=== PATIENT | female | born 1940 | race Caucasian/White ===

== ENCOUNTER → 2023-10-19 14:36 | Outpatient (REF) | payer OTHER, SELFPAY | LOC: RAD 14:36 | PROVIDERS: ATTENDING PHYSICIAN Internal Medicine Cardiovascular Disease; FAMILY PHYSICIAN Family Medicine | DX: I70.209 Unspecified atherosclerosis of native arteries of extremities, unspecified extremity (principal) | CPT/HCPCS: 93922; 93925 ==

== ENCOUNTER → 2024-05-19 13:40 | Outpatient (REF) | payer OTHER, SELFPAY | LOC: RAD 13:40 | PROVIDERS: ATTENDING PHYSICIAN Registered Nurse | DX: I73.9 Peripheral vascular disease, unspecified (principal) | CPT/HCPCS: 93922; 93925 ==

== ENCOUNTER 2024-11-09 17:00 | Inpatient (IN) | payer OTHER, SELFPAY ==
[2024-11-09] VITALS (14 sets, daily range): BP systolic 135–227; BP diastolic 44–96; BMI 22.3
[2024-11-09 11:36] LABS: % Basophils 0.5 % (0-2); % Eosinophils 5.1 % (0-6); % Immature Granulocytes 0.2 % (0-0.5); % Lymphocytes 8.1 % (20.5-51.1); % Neutrophils 79.1 % (42.2-75.2); Absolute Eosinophils 0.3 10^3/uL (0-0.7); Absolute Lymphocytes 0.5 10^3/uL (1.2-3.4); Absolute Monocytes 0.4 10^3/uL (0.1-0.6); Absolute Neutrophils 4.8 10^3/uL (1.4-6.5); Hematocrit 34.1 % (37.0-47.0); Hemoglobin 11.6 g/dL (12.0-16.0); Mean Corpuscular Hgb 32.5 pg (27.0-31.0); Mean Corpuscular Volume 95.5 fL (81.0-99.0); Mean Platelet Volume 9.6 fL (7.4-10.4); Nucleated Red Blood Cells % 0 %; Platelet Count 187 10^3/uL (130-400); Red Blood Cell Count 3.57 10^6/uL (4.20-5.40)
[2024-11-09 11:58] LABS: ALT (SGPT) 197 U/L (0-35); AST (SGOT) 270 U/L (14-36); Albumin 3.9 g/dl (3.5-5.0); Alkaline Phosphatase 193 U/L (38-126); Blood Urea Nitrogen 21 mg/dl (7-17); Calcium 9.6 mg/dl (8.4-10.2); Carbon Dioxide 25 mmol/L (22-30); Chloride 111 mmol/L (98-107); Glucose 120 mg/dl (70-99); Potassium 4.5 mmol/L (3.5-5.1); Sodium 142 mmol/L (135-145); Total Bilirubin 1.6 mg/dl (0.2-1.3); Total Protein 6.3 g/dl (6.3-8.2); eGFR 55.21
[2024-11-09 12:09] LABS: Lipase > 4000 U/L (23-300); Troponin I < 0.012 ng/ml
--- NOTE | 2024-11-09 12:43 | ED.GENMED ---
History of Present Illness
General
Chief Complaint: Back Pain
Source: patient and family (daughter at bedside)
Exam Limitations: none
Time Seen by Provider: 11/09/24 12:35
Nursing documentation reviewed up to this point in time: agreed with
History of Present Illness
History of Present Illness:
The patient is an 83-year-old female with history hypertension, hyperlipidemia, hypothyroid presenting to the emergency department with acute onset abdominal pain starting around 10 PM last night. She describes the pain as constant and localized
primarily to the upper right side, radiating towards the back. The pain began somewhat abruptly while the patient was lying in bed. Patient reports associated nausea although denies any vomiting. She denies any associated chest pain, shortness of
breath, diarrhea/constipation, or urinary symptoms. She denies any fevers or chills. No associated cough or recent illness. She denies any recent trauma or falls.
Patient denies any history of similar symptoms.
She states that prior to onset of pain she did have pizza and chicken tenders for dinner around 6 PM. She denies any alcohol use.
Patient has had past abdominal surgeries including and an appendectomy many years ago.
Review of Systems
Review of Systems
Allergies reviewed?: Yes
All Other Systems: ROS reviewed and negative except as documented in HPI and ROS
Phy Exam
Physical Exam
Physical Exam:
Vitals: Patient's vital signs are stable. Afebrile
General: Patient is well appearing, no acute distress. Nontoxic appearing
Skin: Warm and dry, no rashes or lesions
Head: Normocephalic, atraumatic
Eyes: Sclera nonicteric.
Throat: Protecting airway
Neck: Normal ROM
Cardiac: Regular rate and rhythm, no murmurs.
Pulm: Normal respiratory effort, no wheezes, rales, rhonchi heard on exam
.
Abdomen: Abdomen soft. Moderate tenderness in right upper quadrant with voluntary guarding. Positive Angeles sign. Mild tenderness in epigastric region.
Extremities: No evidence of cyanosis or edema. Palpable DP pulses bilaterally
Neuro: AAOx3. Grossly intact.
Psychiatric: Normal affect.
Course
Orders/Labs/Results
Orders:
Orders
11/09/24 11:20
ECG [Electrocardiogram (*1)] Urgent
Reason for Study: Abdominal Pain
EKG- Treatment ONCE
11/09/24 11:28
Complete Blood Count/With Diff Urgent
Comprehensive Metabolic Panel Urgent
Direct Bilirubin Urgent
Lipase Urgent
Troponin I Urgent
11/09/24 12:53
Add On- LAB Urgent
Tests Added?: direct bilirubin
HYDROmorphone [Dilaudid] 0.5 mg IV NOW STA
Ondansetron Injectable [Zofran] 4 mg IV NOW STA
US Abdomen Complete/Upper Urgent
Comment:
Reason For Exam: RUQ pain, elevated lipase
11/09/24 12:55
Lactated Ringers [Lr] 1,000 ml IV BOLUS
11/09/24 Dinner
NPO
Allow oral meds: Yes
Allow clear liquids: Sips of Clears
11/09/24 15:26
HYDROmorphone [Dilaudid] 0.5 mg IV NOW STA
11/09/24 15:40
GASTROINTESTINAL CONSULT Routine
Consulting Provider: Bernadette Beck
Was physician already notified: Yes
11/09/24 15:44
SURGICAL CONSULT Routine
Consulting Provider: Pravin Jones
Was physician already notified: Yes
11/09/24 15:45
HydrALAZINE [Apresoline] 10 mg IV Q4HPRN PRN
11/09/24 15:59
Admit/Transfer Patient As Directed
Co-Sign Provider:
Level of Care: Inpatient admission
Assign to:: Medical/Surgical
Physician / Group: Emily/hospitalist
Diagnosis: GS pancreatitis
Reason for Hospitalization: GS pancreatitis
Expected length of stay greater than two midnights?: Yes
ELOS- Estimated Length of Stay in days: 3
I certify the patient meets the requirements for IP care: Yes
PRN Pain Medication Management As Directed
May give lesser potent ordered pain med per pt: Yes
preference::
Protocol:: Medication orders for pain may be administered in a
manner that supports deferring to patient preference
when the pt is:
- Requesting an ordered lesser potent pain medication.
Least to most potent pain medications are defined
as: acetaminophen < NSAID < tramadol < opioids
(morphine, oxycodone, hydromorphone).
- Requesting a lesser dose of the same medication IF
ORDERED.
- Requesting a less intrusive route of administration
if both routes are prescribed by the provider (PO <
IV).
11/09/24 16:00
Code Status As Directed
Resuscitation Status: Full Code
11/09/24 17:00
Lactated Ringers [Lr] 1,000 ml IV 100 mls/hr
11/09/24 17:38
Bisacodyl [Dulcolax] 10 mg RECTAL [id number] PRN
Docusate W/Senna [Senokot-S] 1 tablet PO BIDPRN PRN
Morphine Sulfate 2 mg IV Q4HPRN PRN
Ondansetron Injectable [Zofran] 4 mg IV Q6HPRN PRN
Polyethylene Glycol Powder [Miralax] 17 grams PO DAILYPRN PRN
11/09/24 17:38
Activity As Directed
Activity Level: As Tolerated
Vital Signs As Directed
Frequency: Per unit guidelines
DX Deep Vein Thrombosis Video Routine
11/09/24 18:00
Enoxaparin Sodium [Lovenox] 40 mg SC QPM
Labetalol [Trandate] 300 mg PO BID
11/10/24 06:00
Complete Blood Count/No Diff IN AM
Comprehensive Metabolic Panel IN AM
Lipase IN AM
Magnesium IN AM
Levothyroxine [Synthroid] 75 mcg PO DAILY @ 0600
11/10/24 08:00
Valsartan [Diovan] 320 mg PO DAILY
11/11/24 06:00
Complete Blood Count/No Diff IN AM
Comprehensive Metabolic Panel IN AM
Lipase IN AM
Abnormal Lab Results
11/09/24
11:28
RBC 3.57 L 10^6/uL
(4.20-5.40)
Hgb 11.6 L g/dL
(12.0-16.0)
Hct 34.1 L %
(37.0-47.0)
MCH 32.5 H pg
(27.0-31.0)
Absolute Lymphs (auto) 0.5 L 10^3/uL
(1.2-3.4)
Neutrophils % 79.1 H %
(42.2-75.2)
Lymphocytes % 8.1 L %
(20.5-51.1)
Chloride 111 H mmol/L
(98-107)
BUN 21 H mg/dl
(7-17)
Glucose 120 H mg/dl
(70-99)
Total Bilirubin 1.6 H mg/dl
(0.2-1.3)
Direct Bilirubin 0.7 H mg/dl
(0.0-0.4)
AST 270 H U/L
(14-36)
ALT 197 H U/L
(0-35)
Alkaline Phosphatase 193 H U/L
(38-126)
Lipase > 4000 H* U/L
(23-300)
11/09/24 11:28
11/09/24 11:28
Vital Signs
Initial and Last Documented VS:
Initial Vital Signs
Pulse Resp Pulse Ox
52 16 100
11/09/24 11:21 11/09/24 11:21 11/09/24 11:21
Last Documented Vital Signs
Temp Pulse Resp BP Pulse Ox
98.8 F 72 18 165/50 96
11/09/24 23:06 11/09/24 23:06 11/09/24 23:06 11/09/24 23:06 11/09/24 23:06
MDM/Problems Addressed
Differential Diagnosis Includes:
Not limited to: Acute pancreatitis, gallstone pancreatitis, biliary colic, acute cholecystitis, choledocholithiasis, cholangitis, GERD, ACS, etc.
MDM/Problems Addressed:
83-year-old female presented to the emergency department with one-day of upper abdominal pain associated with nausea. Vitals and physical exam as above. Patient hypertensive on my initial evaluation which I suspect to somewhat related to discomfort.
The physical examination confirmed tenderness in RUQ/ epigastric region. No peritoneal signs.. Prior to evaluation, lab tests included a CBC with no significant abnormalities, chemistry test showed elevated bilirubin, transaminitis, and a lipase
level > 4,000. Given laboratory abnormalities in conjunction with hx / exam - concern for gallstone pancreatitis. Will check abdominal US, give IV LF, and treat pain. Patient will require admission to hospital for further evaluation.
Update: Abdominal US reveals cholelithiasis without other significant abnormalities. Overall impression is gallstone pancreatitis, given the elevated bilirubin, transaminitis, elevated lipase, and ultrasound findings of gallstones. The patient will
be admitted for fluid resuscitation and pain control, with consideration for a possible ERCP, cholecystectomy if needed. Patient accepted to hospitalist service in stable condition. GI aware.
Chronic conditions affecting care:
N/A
Acute Exacerbation and/or Progression of Chronic Illness:
N/A
*Radiology
Radiology exam reviewed: radiology read reviewed
*Pulse Oximetry
Patient hypoxic: no (100% on room air)
*EKG
Interpreted by ED Provider?: Yes
EKG Intrepretation Date: 11/09/24
Interpretation: abnormal
Comparison EKG: no changes
Heart Rate: 51
Rate: bradycardiac
Rhythm: sinus
Sells: normal axis
Interval: normal QT interval
QRS Pattern: normal QRS
Ischemia: no ischemia
*Refrigeration Engine Operator Interpretation
Rate: Refrigeration Engine Operator- N/A
*Critical Care Note
Total Time (30-74mins, 75-104mins- exclusive of procedures): Not Applicable
Data Reviewed
Review of Other/Old Records Reveals: Testing (Cardiac echo from 01/09/2023-EF of 60 to 65%)
Patient Management
Discussion with other providers: Hospitalist and [employer] (Case discussed with GI)
Escalation/DeEscalation of care consider admission/obs:
Admit indicated
ED Attending Note
-
Portions of this chart may have been created with voice recognition software.� Occasional wrong word or��sound alike� substitutions may have occurred due to the inherent limitations of voice recognition software.
Discharge Plan
Departure
Patient Disposition: Admit
Date of Disposition: 11/09/24
Time of Disposition: 15:34
Presentation/result/management discussed w/ accepting MD/DO: Hospitalist
Discharge Problem:
Gallstone pancreatitis
Interventions
Interventions:
*Risk Screen - Suicide Last Done: 11/09/24 18:38
*General Assessment Last Done: 11/09/24 11:24
*Neglect/Abuse Screening Last Done: 11/09/24 11:24
*ED- Fall Risk Assessment Last Done: 11/09/24 12:44
*ED COVID-19 Vaccine History Last Done: 11/09/24 12:44
*Nursing Disposition Last Done: 11/09/24 17:40
ED-Musculoskeletal Assessment Last Done: 11/09/24 12:44
Discharge Date and Time
Discharge Date/Time: 11/09/24 17:45
[2024-11-09] MEDS: DILAUDID 0.5 MG IV ×2 (13:09→15:35)
[2024-11-09] MEDS: ZOFRAN 4 MG IV (13:10)
[2024-11-09] MEDS: LR 1000 IV ×2 (13:10→18:21)
[2024-11-09 13:30] LABS: Direct Bilirubin 0.7 mg/dl (0.0-0.4)
--- NOTE | 2024-11-09 15:39 | HPS.HSE ---
Family Physician
-
Family Physician: Demond Betancourt
Chief Complaint
-
RUQ pain
History of Present Illness
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 The pain radiated to her back.
Patient also c/o nausea without vomiting.
She denied to other symptoms including fevers/chills etc.
Medical History
Past Medical History
Past Medical History: Reports Other
Additional Past Medical History:
hypertension,
hyperlipidemia,
hypothyroidism
Past Surgical History: Reports Appendectomy, and Other (BL breast cyst removed )
Social History
Tobacco: Non-smoker
Alcohol: None
Living: With Family
Family History
Family History: Not pertinent
Allergies / Home Medications
Allergies reflects when Allergies were last updated in [facility].
Home Medications with original date entered in [facility]
Allergy/Medication List:
Medications on admission are unable to be verified or confirmed at this time.
Review of Systems
-
Abdomen/GI: Reports See HPI, Abdominal Pain and Nausea; Denies Vomiting
Physical Exam
Vital Signs
Vital Signs
Temp Pulse Resp BP Pulse Ox
36.4 C 48 14 217/58 97
11/09/24 11:22 11/09/24 15:20 11/09/24 15:20 11/09/24 15:20 11/09/24 15:20
Physical Exam
General: Well Developed, Well Nourished, No Apparent Distress, Comfortable and Conversant
HEENT: NormoCephalic, Moist mucous membranes and Atraumatic
Respiratory: Clear and Non Labored Respirations; No Accessory Resp Muscle Use
Cardiac: S1/S2 and Regular Rhythm; No Murmur or Rub
GI: Soft, Non Distended, Normal Bowel Sounds and Tender (RUQ, mild pain); No Organomegaly
Rectal: Deferred by Provider
Musculoskeletal: No Clubbing, No Cyanosis and No Edema
Skin: No Rash
Neuro: Awake and Alert
Psych: Calm and Intact Judgment/Insight
Laboratory Results
-
11/09/24 11:28
11/09/24 11:
Laboratory Results
Total Bilirubin 1.6 mg/dl (0.2-1.3) H 11/09/24 11:
AST 270 U/L (14-36) H 11/09/24:
ALT 197 U/L (0-35) H 11/09/24 11:
Alkaline Phosphatase 193 U/L (38-126) H 11/09/24 11:
Troponin I < 0.012 ng/ml 11/09/24 11:
Lipase > 4000 U/L (23-300) H* 11/09/24 11:28
Data Reviewed
-
Ultrasound: Report Reviewed by me
Lab Data: Labs Reviewed by me
Impression/Plan
-
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 The pain radiated to her back.
Patient also c/o nausea without vomiting.
She denied to other symptoms including fevers/chills etc.
Abd US:
Gallbladder stones without wall thickening. Cannot entirely exclude some pericholecystic fluid. Negative sonographic Angeles's sign. No findings to suggest biliary tract dilatation.
No focal abnormality of the visualized head/body of pancreas.
Small simple right renal cyst.
A/P:
# Right upper quadrant abdominal pain due to gallstone pancreatitis
# Transaminitis due to above
lipase > 4000 on admission
Abdominal ultrasound as above
N.p.o. with IV fluid RL
Pain control with
GI consult
General Surgery consult
# hypertension urgency
BP 200/50 on admission
Continue COMMUNITY ENGAGEMENT SPECIALIST labetalol
IV hydralazine as needed
# hyperlipidemia
Hold statin with current transaminitis
# hypothyroidism
continue COMMUNITY ENGAGEMENT SPECIALIST Synthroid
DVT ppx: Lovenox SQ
FC
[2024-11-09] MEDS: APRESOLINE 10 MG IV (16:04)
--- NOTE | 2024-11-09 16:54 | CON.GS ---
Consultation
-
Date/Time Consultation Performed: 11/09/24 1645
Performing Provider: Stephen Chapin
Medical History
-
Chief Complaint: epigastric pain
History of Present Illness:
Ms Gabrer is an 83 yo female with a h/o , appendectomy and HTN who presented through the ED with epigastric pain into her back that began around 10pm last night. She notes that in August, she strained her lower back and has been experiencing
low back pain since that time with occasional nausea. Last night, the pain was more toward the mid back but primarily in the epigastric area across the top of her abdomen with persistent nausea. She presents to the ED today as her symptoms have
worsened and not improved. She has not eaten since yesterday d/t nausea and poor appetite. She notes her urine has been a little darker but denies acholic stools or jaundice. She has not experienced pain like this in the past. On exam, she is tender
primarily to the epigastrium with milder tenderness to the bilateral upper abdomen. She is feeling a little more comfortable since receiving medicaiton in the ED.
Past Medical History
Past Medical History: HTN, Hypercholesterolemia and Hypothyroidism
Past Surgical History: Appendectomy (open), and Other (BL breast cyst removal (benign), Last colonoscopy 2013 with polypectomy)
Social History
Tobacco: Former Smoker
Alcohol: Occasional (5x a year)
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
Family History
Family History: Other (gallbladder dz)
Allergies / Home Medications
Allergy/AdvReac Type Severity Reaction Status Date / Time
No Known Allergies Allergy Verified 11/09/24 11:22
�Medication �Instructions �Recorded �Confirmed �Type
atorvastatin 10 mg tablet 10 mg PO HS 09/18/21 11/09/24 History
labetalol 200 mg tablet 300 mg PO BID 09/18/21 11/09/24 History
levothyroxine 75 mcg capsule 75 mcg PO DAILY 09/18/21 11/09/24 History
valsartan 320 mg tablet 320 mg PO HS 09/18/21 11/09/24 History
cholecalciferol (vitamin D3) 25 25 mcg PO HS 11/09/24 11/09/24 History
mcg (1,000 unit) tablet
famotidine 20 mg tablet (Pepcid) 20 mg PO DAILYPRN PRN gerd 11/09/24 11/09/24 History
ibuprofen 200 mg tablet 600 mg PO DAILYPRN PRN mild pain 11/09/24 11/09/24 History
therapeutic multivitamin 1 tab PO HS 11/09/24 11/09/24 History
vitamin B complex 1 tab PO HS 11/09/24 11/09/24 History
Review of Systems
-
History Source: Patient
All other systems: Negative unless noted
A 10 point review of systems was completed, and was negative except as per HPI.
Physical Exam
Vital Signs
Temp Pulse Resp BP Pulse Ox
97.5 F 52 18 208/55 97
11/09/24 11:22 11/09/24 16:00 11/09/24 16:20 11/09/24 16:20 11/09/24 16:20
11/08/24 11/09/24 11/10/24
06:59 06:59 06:59
Actual Weight 64.9 kg
Lab Results
11/09/24 11:28
11/09/24 11:28
WBC 6.0 10^3/uL (4.8-10.8) 11/09/24 11:28
Hgb 11.6 g/dL (12.0-16.0) L 11/09/24 11:28
Hct 34.1 % (37.0-47.0) L 11/09/24 11:28
Plt Count 187 10^3/uL (130-400) 11/09/24 11:28
Abs Immat Gran (auto) 0.0 10^3/uL (0-0.05) 11/09/24 11:28
Neutrophils % 79.1 % (42.2-75.2) H 11/09/24 11:28
Physical Exam
General: Well Developed and Well Nourished
HEENT: Moist Mucous Membranes
Respiratory: Non Labored Respirations
GI: Soft, Non Distended and Tender (Upper abdomen, most severe at the epigastrium)
Skin: Warm and Dry
Neuro: Awake, Alert and AO x 3
Psych: Calm
Data Reviewed
-
Ultrasound: Image Personally Visualized and interpreted, Report Reviewed by me, Discussed with Physician and Discussed with Patient
Labs: Labs Reviewed by me, Discussed with Physician and Discussed with Patient
Old Records: Reviewed
Assessment / Plan
-
83 yo female with a h/o , appendectomy and HTN who presented through the ED with suspected gallstone mediated pancreatitis. She c/o epigastric pain into her back that began around 10pm last night. Lipase >4k with mildly elevated bilirubin
and transaminases. No leukocytosis. Pain and tenderness on exam to the upper abdomen. US imaging with gallstones but without wall thickening or significant pericholecystic fluid. Afebrile. Hypertensive emergency on presentation with better BP
currently of 152/100.
Discussed the role of surgery for laparoscopic cholecystectomy in prevention of future episodes. Surgery will not correct this current episode and would ideally be preformed once pancreatitis improved/resolved. Will follow for tentative lap homar
later this admission.
Management of acute pancreatitis as per primary team/gastroenterology
[2024-11-09] MEDS: TRANDATE 300 MG PO (17:32)
[2024-11-09] MEDS: LOVENOX 40 MG SC (18:21)
--- NOTE | 2024-11-09 18:50 | PTCARENOTE ---
Pt arrived to 413-1 at 1750 from the ED. Pt AAOx3, telemetry admission, Sinus Rhythm/Sinus Bradycardia on tele, HR 50s-60s. Rating upper abdominal pain as 3/10, acceptable pain at this time for patient. BP 207/66 on admit to floor. Asymptomatic,
ongoing problem for pt, Dr. Diaz aware. Advised pt to ring call meraz for assist to the bathroom due to elevated BP and pain- pt verbalized understanding.
Rechecked BP at [address] Diaz had asked for a recheck a hour after Labetalol was administered. BP (manually) 210/58, HR 62. Pt denying headache or dizziness but having increased abdominal pain. Made Dr. Diaz aware of BP and administered PRN
Morphine 2mg at 1850, will continue to monitor closely.
[2024-11-09] MEDS: MORPHINE SULFATE 2 MG IV (18:53)
[2024-11-10] VITALS (8 sets, daily range): BP systolic 126–188; BP diastolic 45–71; BMI 22.3
[2024-11-10] MEDS: MORPHINE SULFATE 2 MG IV (00:27)
[2024-11-10] MEDS: ZOFRAN 4 MG IV ×2 (00:29→19:44)
[2024-11-10] MEDS: APRESOLINE 10 MG IV (03:19)
[2024-11-10] MEDS: COMPAZINE 5 MG IV (04:50)
[2024-11-10] MEDS: LR 1000 IV ×2 (05:33→17:05)
[2024-11-10] MEDS: TORADOL 15 MG IV (05:36)
[2024-11-10] MEDS: SYNTHROID 75 MCG PO (05:37)
--- NOTE | 2024-11-10 06:30 | PTCARENOTE ---
Patient complaining of 'pressure' and 'swishing noise' in head that is worse when laying on her side. Patient also continues with nausea and dry heaving at times. 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 Patient reports relief after
medications. Plan of care ongoing.
--- NOTE | 2024-11-10 06:53 | CON.GI ---
Addendum entered and electronically signed by Bernadette Beck MD 11/10/24 20:07:
I saw and examined the patient.
The BALE STACKER or PA's note was reviewed and I agree with the note.
Comment: 83-year-old female with history of hypertension, high cholesterol, hypothyroidism presenting with complaints of back pain and epigastric pain in the last 3 weeks, also noted to have lost about 10 pounds and pain persistent and worsening and
came to the emergency room. In the ER, she was noted to have elevated bilirubin, 1.6 on admission and now 5.2 with elevated AST, ALT and alkaline phosphatase and lipase. Subsequent MRI showing double duct sign with 1.3 x 1.2 cm mass in the
pancreatic head and severe diffuse dilation of the intra and extrahepatic biliary tract.
- Pancreatitis caused by underlying pancreatic mass with double duct sign concerning for malignancy.
Patient will need EUS/ERCP for FNA of the pancreatic mass and possible biliary stent placement .
No fevers at this time or leukocytosis, but given there is significant dilation of the bile duct with a planned EUS/ERCP Sunday, will start Zosyn.
Discussed with advanced endoscopy fellow Dr. Noé Hope, plan is for abdominal and back procedure at [facility] Sunday.
Updated f patient and daughter.
Original Note:
Consultation
-
Date/Time Consultation Requested: 11/09/24 1540
Date/Time Consultation Performed: 11/10/24 0945
Requesting Provider: Alejandra Diaz MD
Performing Provider: GAYE Martin, Bernadette Beck MD
Reason for Consultation: pancreatitis, elevated LFT's
Medical History
Chief Complaint / HPI
Chief Complaint: abdominal pain
History of Present Illness:
PT is a 83yo with hx HTN, hypercholesterolemia, hypothyroidism, TA polyps, PAD, appe, , breast biopsy with onset of epigastric pain. Pt admits to recent back strain prior to onset. Labs on admission noted with bili 1.6 with rise to 5.2 ,
AST 270, ALT 197, alk phos 193 with lipase >4000. US abdomen with gallbladder stones without wall thickening. Neg angeles sign no biliary tract dilatation no focal abnormality in head/body of pancreas. small simple renal cyst. Pt has been seen by
surgical team recommend lap homar when able.
In review with patient she began with back pain lift heavy item about 6-7 weeks ago. She admits to to taking Tyelnol up to 1 gram daily long with Advil and some Aleve with several dose per daily for at least 1 week. She now presents with
continued epigastric/back pain with wrap about pain. She rates as 3/10 with worse pain 8/10. She also admits to some indigestion with 10 lbs wt loss. she denies fever, dysphagia, odynophagia, vomiting, diarrhea, constipation, change in urine or
stool color. Recent increased NSAID use with back pain. No AC use.
Past Medical History
Past Medical History: HTN, Hypercholesterolemia, Hypothyroidism and Other (PAD, TA polyps )
Past Surgical History: Appendectomy, and Other (breast biopsy )
Social History
Tobacco: Former Smoker
Alcohol: None
Drug: None
Living: With Family (daughter )
Employment: Employed
Family History
Family History: Other (mother with hx homar, no family hx pancreatic problems)
Allergies / Home Medications
Allergy/AdvReac Type Severity Reaction Status Date / Time
No Known Allergies Allergy Verified 11/09/24 11:22
�Medication �Instructions �Recorded
atorvastatin 10 mg tablet 10 mg PO HS 09/18/21
labetalol 200 mg tablet 300 mg PO BID 09/18/21
levothyroxine 75 mcg capsule 75 mcg PO DAILY 09/18/21
valsartan 320 mg tablet 320 mg PO HS 09/18/21
cholecalciferol (vitamin D3) 25 25 mcg PO HS 11/09/24
mcg (1,000 unit) tablet
famotidine 20 mg tablet (Pepcid) 20 mg PO DAILYPRN PRN gerd 11/09/24
ibuprofen 200 mg tablet 600 mg PO DAILYPRN PRN mild pain 11/09/24
therapeutic multivitamin 1 tab PO HS 11/09/24
vitamin B complex 1 tab PO HS 11/09/24
Review of Systems
-
History Source: Patient
Constitutional: Reports Weight Loss
EENT: Reports No Symptoms
Respiratory: Reports No Symptoms
Cardiac: Reports No Symptoms
Abdomen/GI: Reports Abdominal Pain
: Reports No Symptoms
Musculoskeletal: Reports No Symptoms
Skin: Reports No Symptoms
Neurological: Reports No Symptoms
Endocrine: Reports No Symptoms
Hematologic/Lymphatic: Reports No Symptoms
Vital Signs
Temp Pulse Resp BP Pulse Ox
98.7 F 68 18 171/56 96
11/10/24 03:21 11/10/24 06:33 11/10/24 03:21 11/10/24 06:33 11/10/24 03:21
Physical Exam
Exam
General: Well Developed, Well Nourished and No Apparent Distress
HEENT: Normocephalic and Other (jaundice )
Respiratory: Clear
Cardiac: Regular Rhythm
GI: Soft, Non Distended and Tender (epigastric pain )
Musculoskeletal: No Clubbing and No Cyanosis
Skin: Warm and Dry
Neuro: Awake, Alert and AO x 3
Psych: Calm
Results
WBC 6.0 10^3/uL (4.8-10.8) 11/09/24 11:28
Hgb 11.6 g/dL (12.0-16.0) L 11/09/24 11:28
Hct 34.1 % (37.0-47.0) L 11/09/24 11:28
MCV 95.5 fL (81.0-99.0) 11/09/24 11:28
Plt Count 187 10^3/uL (130-400) 11/09/24 11:28
Absolute Neuts (auto) 4.8 10^3/uL (1.4-6.5) 11/09/24 11:28
Sodium 142 mmol/L (135-145) 11/09/24 11:28
Potassium 4.5 mmol/L (3.5-5.1) 11/09/24 11:28
Chloride 111 mmol/L (98-107) H 11/09/24 11:28
Carbon Dioxide 25 mmol/L (22-30) 11/09/24 11:28
BUN 21 mg/dl (7-17) H 11/09/24 11:28
Creatinine 1.0 mg/dL (0.6-1.0) 11/09/24 11:
Calcium 9.6 mg/dl (8.4-10.2) 11/09/24 11:
Total Bilirubin 1.6 mg/dl (0.2-1.3) H 11/09/24 11:28
AST 270 U/L (14-36) H 11/09/24 11:28
ALT 197 U/L (0-35) H 11/09/24 11:28
Alkaline Phosphatase 193 U/L (38-126) H 11/09/24 11:28
Lipase > 4000 U/L (23-300) H* 11/09/24 11:28
Diagnostic Image Results:
11/09/24 US Abdomen Complete/Upper
Gallbladder stones without wall thickening. Cannot entirely exclude some pericholecystic fluid. Negative sonographic Angeles's sign. No findings to suggest biliary tract dilatation.
No focal abnormality of the visualized head/body of pancreas.
Small simple right renal cyst.
Prior GI Procedures:
EGD: none
Colonoscopy: 2014 salguti - repeat 2 years based on path - Non-thrombosed external hemorrhoids found on perianal
exam.
- One 1 mm polyp in the cecum. Resected and retrieved.
- One 2 mm polyp in the cecum. Resected and retrieved.
- One 2 mm polyp in the ascending colon. Resected and
retrieved.
- One 2 mm polyp in the ascending colon. Resected and
retrieved.
- One 3 mm polyp at the hepatic flexure. Resected and
retrieved.
- One 5 mm polyp in the rectum. Resected and retrieved.
Clip was placed.
- Diverticulosis in the sigmoid colon.
bx cecum benign other polyps adenomatous
Assessment / Plan
-
PT is a 83yo with hx HTN, hypercholesterolemia, hypothyroidism, PAD, TA polyps, appe, , breast biopsy with onset of epigastric pain. Pt admits to recent back strain prior to onset. Labs on admission noted with bili 1.6, AST 270, ALT 197,
alk phos 193 with lipase >4000. US abdomen with gallbladder stones without wall thickening. Neg angeles sign no biliary tract dilatation no focal abnormality in head/body of pancreas. small simple renal cyst. Pt has been seen by surgical team
recommend lap homar when able. Recent increased NSAID use with back pain. No AC use.
-epigastric pain with concern for pancreatitis
-elevated LFT's and lipase
-cholelithiasis
-recent back pain with increased NSAID use
other med problems:
-HTN
-hyperlipidemia
-hypothyroidism
-PAD
-prior appe
-
-TA polyps
PLAN:
etiology of elevated LFT's and lipase elevated related to CBD stone , pancreatic vs other
plan for MRI with MRCP -- hopefully to do this am
if + stone will need ERCP - timing to be determined pending MRI study
if proceeding consider EGD with recent increased NSAID use
cont NPO
s/p surgical eval awaiting work up for plan for homar
trend labs
pain control
-
-
Thank you for consultation and allowing me to participate in the patient's care. Please call the modeling and simulation analyst GI physician during the after hours with any questions or concerns.
[2024-11-10 07:26] LABS: Hematocrit 32.1 % (37.0-47.0); Mean Corp Hgb Conc. 34.3 g/dL (33.0-37.0); Mean Corpuscular Hgb 32.5 pg (27.0-31.0); Mean Platelet Volume 10.4 fL (7.4-10.4); Platelet Count 170 10^3/uL (130-400); Red Blood Cell Count 3.38 10^6/uL (4.20-5.40); Red Cell Dist. Width 13.2 % (11.5-14.5); White Blood Cell Count 9.7 10^3/uL (4.8-10.8)
[2024-11-10 08:01] LABS: ALT (SGPT) 150 U/L (0-35); AST (SGOT) 158 U/L (14-36); Albumin 3.7 g/dl (3.5-5.0); Alkaline Phosphatase 187 U/L (38-126); Blood Urea Nitrogen 20 mg/dl (7-17); Calcium 9.5 mg/dl (8.4-10.2); Carbon Dioxide 23 mmol/L (22-30); Chloride 108 mmol/L (98-107); Estimated Creatinine Clearance 44 ml/min; Glucose 93 mg/dl (70-99); Magnesium 1.8 mg/dl (1.6-2.3); Potassium 4.1 mmol/L (3.5-5.1); Sodium 140 mmol/L (135-145); Total Bilirubin 5.2 mg/dl (0.2-1.3); eGFR > 60.00
[2024-11-10 08:15] LABS: Lipase > 4000 U/L (23-300)
[2024-11-10] MEDS: DIOVAN 320 MG PO (08:41)
[2024-11-10] MEDS: TRANDATE 300 MG PO ×2 (08:41→19:44)
--- NOTE | 2024-11-10 09:48 | W.PN.HOSP.TC ---
Today's Communication/Plan
-
see A/P
Assessment / Plan
Assessment / Plan
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 The pain radiated to her back.
Patient also c/o nausea without vomiting.
She denied to other symptoms including fevers/chills etc.
Abd US:
Gallbladder stones without wall thickening. Cannot entirely exclude some pericholecystic fluid. Negative sonographic Angeles's sign. No findings to suggest biliary tract dilatation.
No focal abnormality of the visualized head/body of pancreas.
Small simple right renal cyst.
A/P:
# Right upper quadrant abdominal pain due to gallstone pancreatitis
# Transaminitis due to above
lipase > 4000, cont to trend
LFT improving, cont to monitor
Abdominal ultrasound as above
Check MRCP
N.p.o. with IV fluid RL
Pain control with IV Morphine PRN
GI consulted
General Surgery consulted
# hypertension urgency
BP 200/50 on admission
Continue TASSEL MAKER labetalol
IV hydralazine as needed
# hyperlipidemia
Hold statin with current transaminitis
# hypothyroidism
continue TASSEL MAKER Synthroid
DVT ppx: Lovenox SQ
FC
Anticipated Discharge: > 48 hours
Subjective/Interval History
-
Date of Service: November 10, 2024
Objective Data
-
Labs:
Laboratory Results
11/10/24
06:49
WBC 9.7
Hgb 11.0 L
Hct 32.1 L
Plt Count 170
Sodium 140
Potassium 4.1
Chloride 108 H
Carbon Dioxide 23
BUN 20 H
Creatinine 0.9
Glucose 93
Calcium 9.5
Total Bilirubin 5.2 H D
AST 158 H
ALT 150 H
Alkaline Phosphatase 187 H
Vital Signs:
Vital Signs
Temp Pulse Resp BP Pulse Ox
36.8 C 90 18 162/71 95
11/10/24 08:25 11/10/24 08:41 11/10/24 08:25 11/10/24 08:41 11/10/24 08:25
Review of Systems
-
History Source: Patient
Abdomen/GI: Reports Abdominal Pain (RUQ)
Physical Exam
-
General: Well Developed, Well Nourished, No Apparent Distress, Comfortable and Conversant; Negative Respiratory Distress
HEENT: Normocephalic, Atraumatic, Nose Appears Normal and Ears Appear Normal; Negative Oxygen
Respiratory: Clear to Auscultation and Non Labored Respirations; Negative Accessory Resp Muscle Use
Cardiac: Regular Rhythm and S1/S2
GI: Soft, Nondistended, Normal Bowel Sounds and Tender (mild, RUQ )
Skin: Warm and Dry
Neuro: Awake, Alert, Oriented and AO x 3
Psych: Calm and Intact Judgement/Insight
Data Reviewed
-
Labs: Labs Reviewed by me
--- NOTE | 2024-11-10 11:06 | CM ---
Patient seen bedside, initial assessment completed. Patient is a 83-year-old female with history hypertension, hyperlipidemia, hypothyroidism; p/w acute onset RUQ abdominal pain.
Patient resides w/ her daughter and daughter's fiance in a 2ST[facility], 2 steps to enter. Patient independent in all areas, no DME identified. Denies SNF/HC hx.
Address, point of contact and insurance verified
PCP: Demond Betancourt
Pharmacy: [facility]
Plan: Anticipate home, no needs
[2024-11-10 12:49] LABS: INR 1.06; PT 14.2 Sec (11.4-14.6)
--- NOTE | 2024-11-10 15:47 | W.PN.GS2 ---
Today's Communication / Plan
-
See assessment and plan
Assessment / Plan
-
This is an 83-year-old female with a history of , appendectomy who presents to our hospital with epigastric abdominal pain found to have gallstone pancreatitis. MRI today demonstrates
Diffuse intra and extrahepatic biliary dilation due to distal obstruction (stricture versus stone), edematous pancreatitis as well as a lesion in the pancreatic head. The gallbladder itself is also distended and thickened but this is favored to be
reactive. She has a small number of small stones. Malignancy is high on the differential here.
Antibiotics to cover cholangitis.
IV fluids for pancreatitis (titrate to urine output)
Okay for clears if no procedural intervention planned for today. N.p.o. if patient cannot tolerate.
No acute general surgical intervention warranted at this time.
Will defer to GI for further workup and management.
Recommend consulting Dr. Owens/surgical oncology for further recommendations once the diagnosis has been more clearly established.
General Surgery will sign off for now, please call with any questions or concerns.
Time Spent
Total Time Spent with Patient (in minutes): 40
Subjective Data
-
Date of Service: November 10, 2024
Interval Events:
No acute events overnight. Slept well. Still having epigastric pain but it is controlled. Denies nausea or vomiting. Still having bowel function.
Objective Data
-
Intake and Output
11/09/24 11/10/24 11/11/24
06:59 06:59 06:59
Other:
Number of approximated MODERATE 2 1
amounts of urine
Vital Signs
Temp Pulse Resp BP Pulse Ox
98.2 F 67 18 183/59 95
11/10/24 11:55 11/10/24 11:55 11/10/24 11:55 11/10/24 11:55 11/10/24 11:55
Lab Results
11/10/24 06:49
11/10/24 06:49
Calcium 9.5 mg/dl (8.4-10.2) 11/10/24 06:49
Magnesium 1.8 mg/dl (1.6-2.3) 11/10/24 06:49
Total Bilirubin 5.2 mg/dl (0.2-1.3) H D 11/10/24 06:49
Direct Bilirubin 0.7 mg/dl (0.0-0.4) H 11/09/24 11:28
AST 158 U/L (14-36) H 11/10/24 06:49
ALT 150 U/L (0-35) H 11/10/24 06:49
Alkaline Phosphatase 187 U/L (38-126) H 11/10/24 06:49
Total Protein 6.0 g/dl (6.3-8.2) L 11/10/24 06:49
Albumin 3.7 g/dl (3.5-5.0) 11/10/24 06:49
Physical Exam
-
GENERAL/NEURO: Awake, Alert, no distress
CHEST: Unlabored breathing on RA
ABDOMEN: Soft, tender to palpation in the epigastrium.
Patient has a lopez catheter: No
Patient has a central line: No
[2024-11-10] MEDS: LOVENOX 40 MG SC (17:05)
[2024-11-10] MEDS: ZOSYN 50 IV (21:25)
[2024-11-11] MEDS: ZOSYN 50 IV ×4 (03:09→21:15)
[2024-11-11] MEDS: LR 1000 IV ×2 (03:09→14:05)
[2024-11-11 03:45] VITALS: BP 157/59
[2024-11-11] MEDS: ZOFRAN 4 MG IV (03:49)
[2024-11-11] MEDS: SYNTHROID 75 MCG PO (05:36)
[2024-11-11 07:45] VITALS: BP 183/111
[2024-11-11 08:02] LABS: Hematocrit 30.5 % (37.0-47.0); Hemoglobin 10.5 g/dL (12.0-16.0); Mean Corp Hgb Conc. 34.4 g/dL (33.0-37.0); Mean Corpuscular Hgb 32.3 pg (27.0-31.0); Mean Corpuscular Volume 93.8 fL (81.0-99.0); Mean Platelet Volume 10.4 fL (7.4-10.4); Platelet Count 168 10^3/uL (130-400); Red Blood Cell Count 3.25 10^6/uL (4.20-5.40); Red Cell Dist. Width 13.4 % (11.5-14.5); White Blood Cell Count 10.8 10^3/uL (4.8-10.8)
--- NOTE | 2024-11-11 08:06 | W.PN.HOSP.TC ---
Today's Communication/Plan
-
Continue Zosyn
EUS/ERCP/FNA supposed to be at [facility] tomorrow (not an actual discharge since patient will come back)
New A-Fib observed on tele; consulted cardiology
Assessment / Plan
Assessment / Plan
Physical Exam
General: Well Developed, Well Nourished, No Apparent Distress, Comfortable and Conversant; Negative Respiratory Distress
HEENT: Normocephalic, Atraumatic, Nose Appears Normal and Ears Appear Normal
Respiratory: Clear to Auscultation and Non Labored Respirations
Cardiac: Irregular Rhythm and S1/S2
GI: Soft, Nondistended, Normal Bowel Sounds and Tender (mild, RUQ )
Skin: Warm and Dry
Neuro: Awake, Alert, Oriented and AO x 3
Psych: Calm and Intact Judgement/Insight
Assessment/Plan
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 The pain radiated to her back.
Patient also c/o nausea without vomiting.
She denied to other symptoms including fevers/chills etc.
Abd US:
Gallbladder stones without wall thickening. Cannot entirely exclude some pericholecystic fluid. Negative sonographic Angeles's sign. No findings to suggest biliary tract dilatation.
No focal abnormality of the visualized head/body of pancreas.
Small simple right renal cyst.
A/P:
# Right upper quadrant abdominal pain due to pancreatitis caused by underlying pancreatic mass with double duct sign concerning for malignancy
# Transaminitis due to above
# Concern for Cholangitis
lipase > 4000, repeat was previously ordered and level decreased
LFT improving, cont to monitor
Abdominal ultrasound as above
MRCP with severe biliary obstruction, severe gallbladder distension, cholelithiasis, 1.3 cm lesion in the anterior pancreatic head
N.p.o. with IV fluid LR
Pain control with IV Morphine PRN
GI consulted: GI spoke with [facility] (Dr. Noé Hope at [facility]) for possible EUS/ERCP for FNA (and possibly biliary stent placement) on Sunday down and back (so not a real discharge)
General Surgery consulted -- no acute general surgical intervention needed at this time -- recommendation to consult Dr. Owens/surgical oncology for further recommendations once the diagnosis has been more clearly established.
Continue with Zosyn
#New-Onset Paroxysmal Atrial Fibrillation
-Patient sees Dr. Kerns outpatient, but has not been found to have A-Fib before, as per patient
-Rates controlled
-Anticoagulation likely after EUS/ERCP/FNA above as per zinc plate cutter and patient discussion
-Consulted cardiology
# hypertension urgency
BP 200/50 on admission
Continue SHANK THREADER labetalol
Continue Valsartan
IV hydralazine as needed
# hyperlipidemia
Hold statin with current transaminitis
# hypothyroidism
continue SHANK THREADER Synthroid
#Additional Abdominal MRI findings:
Mild chronic bilateral renal disease.
Small amount of right upper quadrant perihepatic ascites.
Large amount of fecal material in the proximal colon -- start scheduled Miralax
Moderate diverticulosis throughout the descending and sigmoid colon.
Severe multilevel lumbar discogenic degenerative disease.
DVT Prophylaxis: Lovenox SQ
Code Status: Full Code
Anticipated Discharge: > 48 hours
Subjective/Interval History
-
Date of Service: November 11, 2024
Patient was seen and examined. She reported overall feeling better and denied any new symptoms or complaints.
Objective Data
-
Labs:
Laboratory Results
11/11/24
07:30
WBC 10.8
Hgb 10.5 L
Hct 30.5 L
Plt Count 168
Sodium Pending
Potassium Pending
Chloride Pending
Carbon Dioxide Pending
BUN Pending
Creatinine Pending
Glucose Pending
Calcium Pending
Total Bilirubin Pending
AST Pending
ALT Pending
Alkaline Phosphatase Pending
Vital Signs:
Vital Signs
Temp Pulse Resp BP Pulse Ox
98.2 F 80 16 157/59 93
11/11/24 03:45 11/11/24 03:45 11/11/24 03:45 11/11/24 03:45 11/11/24 03:45
I&O
11/10/24 11/11/24 11/12/24
06:59 06:59 06:59
Intake Total 2780 / 2780
Balance 2780 / 2780
[2024-11-11 08:23] LABS: ALT (SGPT) 112 U/L (0-35); AST (SGOT) 103 U/L (14-36); Albumin 3.2 g/dl (3.5-5.0); Alkaline Phosphatase 195 U/L (38-126); Blood Urea Nitrogen 23 mg/dl (7-17); Calcium 8.5 mg/dl (8.4-10.2); Carbon Dioxide 23 mmol/L (22-30); Chloride 108 mmol/L (98-107); Estimated Creatinine Clearance 44 ml/min; Glucose 99 mg/dl (70-99); Magnesium 1.8 mg/dl (1.6-2.3); Potassium 3.9 mmol/L (3.5-5.1); Sodium 138 mmol/L (135-145); Total Bilirubin 2.4 mg/dl (0.2-1.3); Total Protein 5.5 g/dl (6.3-8.2); eGFR > 60.00
[2024-11-11] MEDS: DIOVAN 320 MG PO (08:26)
[2024-11-11] MEDS: TRANDATE 300 MG PO ×2 (08:26→20:22)
[2024-11-11 08:38] LABS: Lipase 2541 U/L (23-300)
--- NOTE | 2024-11-11 10:39 | CM ---
Addendum entered by Guy Albarran 11/11/24 15:26:
CM consulted for cervantes check for Eliquis and Xarelto
Called [facility] rx plan to review coverage benefits and estimated co pays
For both medications, a 90 day supply will be $60 co pay, 30 days will be $80
Updated ordering physician
Original Note:
Spoke w/ GI, patient is due to be transported tomorrow to [facility] for ERCP procedure. Patient is due to return to [facility] following procedure. Patient's procedure will occur at 12:30, patient will need to be admitted between 11-11:30 am.
Ambulance transport to be arranged between 10-10:30 tomorrow morning, manager community development made aware, forms provided
Acute Care will arrange for patient's return once procedure is completed
Plan: Transfer to [facility] tomorrow for same day procedure and return
[2024-11-11 11:30] VITALS: BP 131/88
--- NOTE | 2024-11-11 12:23 | CON.CAR ---
Addendum entered and electronically signed by Dhiraj Garcia MD 11/11/24 15:33:
I saw and evaluated the patient independantly. I reviewed the resident�s note and agree with findings and plan as documented in the resident�s note.
Briefly, she is an 83-year-old female with a past medical history of hypertension, hyperlipidemia who initially was admitted for pancreatitis secondary to gallstone/cholangitis/malignancy. We are asked to evaluate her as last night she had a rhythm
change from normal sinus rhythm to atrial fibrillation. She has no sense of the arrhythmia. Currently is feeling better. No chest pain or pressure. No dizziness. Of note during evaluation, MRCP showed severe biliary obstruction, severe
gallbladder distention and cholelithiasis with a 1.3 cm lesion in the anterior pancreatic head. Plan is for transfer to [facility] tomorrow for EUS/ERCP/FNA. On exam her lungs are clear to auscultation bilaterally has an
irregularly irregular rate and rhythm with normal S1-S2 no murmur rubs or gallops were appreciated, no lower extremity edema. Alert and oriented x 3. EKG tracing from 11/11/2024 shows atrial fibrillation.
Impression: Paroxysmal atrial fibrillation: Asymptomatic. Currently rate controlled on labetalol. CHADS2 Vascor is a 4. Long-term anticoagulation is indicated. We will ask case management to cervantes out Eliquis 5 mg p.o. twice daily. Meanwhile,
we did discuss the option of starting IV heparin drip versus waiting to her procedures completed tomorrow to initiate. She prefers the latter. I did explain that ideally we would start the drip within 48 hours of onset for optimal stroke
prevention. She understands. She does not want to do anything that would increase her risk for the surgery tomorrow. We will update her echocardiogram. I would recommend initiating anticoagulation as soon as safely possible postprocedure
tomorrow. This rhythm is asymptomatic and rate controlled so no contraindication to proceeding as scheduled.
Hypertension was increased initially but now under control. Continue current medications. Remainder as below.
Original Note:
Consultation
Consultation Request
Date/Time Consultation Requested: 11-11-24
Date/Time Consultation Performed: 11-11-24
Requesting Provider: Dr. Oniel Hernández
Performing Provider: Dr. Dhiraj Garcia
Reason for Consultation: AFib/AFlutter
Medical History
-
Chief Complaint: RUQ pain
History of Present Illness:
Radha Garber, 83-year-old female with HTN, HLD and hypothyroidism, is admitted for pancreatitis secondary to gallstone/cholangitis/malignancy. She came in with acute RUQ pain that began on 11-08-24. Imaging results were consistent with severe distal
biliary obstruction, 1.3 cm anterior pancreatic head lesion and acute interstitial edematous pancreatitis; the former two being suspicious for malignancy. She is followed by gastroenterology and general surgery, and plan is for a transfer to [facility]
tomorrow for endoscopic evaluation and possible biopsy. Telemetry results were concerning for AFib/AFlutter; cardiology was consulted for further management.
Asymptomatic at present. No dizziness, lightheadedness, palpitations, fatigue, shortness of breath, presyncope, chest pain. Previously, before 2021, she would feel dizzy over the weekends intermittently, and consulted with cardiology. Back then
there were concerns for AFib but it was attributed to frequent PACs outpatient. She has not had a monitor and symptoms had resolved. Outpatient ECGs with sinus rhythm.
Past Medical History
Past Medical History: Hypothyroidism, Valvular Disease and Other (PAD)
Past Surgical History: Appendectomy, and Gynecological (breast cyst removal)
Social History
Tobacco: Non-Smoker
Alcohol: Occasional
Drug: None
Living: With Family
Employment: Employed
Family History
Family History: Reviewed & Not Pertinent
Allergies / Home Medications
Allergy/AdvReac Type Severity Reaction Status Date / Time
No Known Allergies Allergy Verified 11/09/24 11:22
�Medication �Instructions �Recorded �Confirmed �Type
atorvastatin 10 mg tablet 10 mg PO HS 09/18/21 11/09/24 History
labetalol 200 mg tablet 300 mg PO BID 09/18/21 11/09/24 History
levothyroxine 75 mcg capsule 75 mcg PO DAILY 09/18/21 11/09/24 History
valsartan 320 mg tablet 320 mg PO HS 09/18/21 11/09/24 History
cholecalciferol (vitamin D3) 25 25 mcg PO HS 11/09/24 11/09/24 History
mcg (1,000 unit) tablet
famotidine 20 mg tablet (Pepcid) 20 mg PO DAILYPRN PRN gerd 11/09/24 11/09/24 History
ibuprofen 200 mg tablet 600 mg PO DAILYPRN PRN mild pain 11/09/24 11/09/24 History
therapeutic multivitamin 1 tab PO HS 11/09/24 11/09/24 History
vitamin B complex 1 tab PO HS 11/09/24 11/09/24 History
Review of Systems
-
History Source: Patient
Constitutional: Fatigue
EENT: No Symptoms
Respiratory: No Symptoms
Cardiac: No Symptoms
Abdomen/GI: Abdominal Pain and Nausea
: No Symptoms
Musculoskeletal: No Symptoms
Skin: No Symptoms
Neurological: No Symptoms
Endocrine: No Symptoms
Hematologic/Lymphatic: No Symptoms
Physical Exam
Vital Signs
Temp Pulse Resp BP Pulse Ox
97.6 F 75 16 131/88 94
11/11/24 11:30 11/11/24 11:30 11/11/24 11:30 11/11/24 11:30 11/11/24 11:30
Lab Results
11/11/24 07:30
11/11/24 07:30
Troponin I < 0.012 ng/ml 11/09/24 11:28
Physical Exam
General: No Apparent Distress and Comfortable
HEENT: Normocephalic, Anicteric, Moist Mucous Membranes and Atraumatic
Respiratory: Clear and Non Labored Respirations
Cardiac: S1/S2, Irregular Rhythm and Murmur (SE III/); Negative JVD
GI: Soft and Tender (diffuse; RUQ>otherQ)
Genito-urinary: No Costovertebral Tender
Musculoskeletal: No Clubbing, No Cyanosis and No Edema
Skin: Warm and Dry
Neuro: Awake, Alert, Oriented, No Motor Deficits and Nonfocal/Grossly Intact
Hematologic/Lymphatic: No Lymphadenopathy
Psych: Calm
Impression / Plan
-
Paroxysmal atrial fibrillation
- HR controlled between 50s-90s.
- Continue labetalol.
- [id number] Score of 4.
- Discussed anticoagulation with heparin pre-procedure and then with apixaban; will cervantes.
- Patient prefers to defer AC until after the procedure, and understands the risks associated.
- If post-procedure, would recommend initiating DOAC by 10 PM if can be done safely.
- Can discuss rate/rhythm control as an outpatient.
Primary hypertension
Hypertensive urgency possibly secondary to significant pain
- Continue labetalol and valsartan.
Hyperlipidemia
- Continue statin.
Pancreatitis secondary to gallstone/cholangitis/malignancy
Hypothyroidism
Peripheral arterial occlusive disease
--- NOTE | 2024-11-11 13:37 | PTCARENOTE ---
Patient converted to AFIB. EKG done. Cards consulted.
[2024-11-11 15:40] VITALS: BP 167/61
--- NOTE | 2024-11-11 15:56 | W.PN.GI.CBS2 ---
Addendum entered and electronically signed by Jai Edwards MD 11/11/24 16:50:
I saw and examined the patient.
The BLEACH BOILER PACKER or PA's note was reviewed and I agree with the note.
Comment:83-year-old female with history of hypertension, high cholesterol, hypothyroidism presenting with complaints of back pain and epigastric pain in the last 3 weeks, also noted to have lost about 10 pounds and pain persistent and worsening and
came to the emergency room. In the ER, she was noted to have elevated bilirubin, 1.6 on admission and now 5.2 with elevated AST, ALT and alkaline phosphatase and lipase. Subsequent MRI showing double duct sign with 1.3 x 1.2 cm mass in the
pancreatic head and severe diffuse dilation of the intra and extrahepatic biliary tract.
- Pancreatitis caused by underlying pancreatic mass with double duct sign concerning for malignancy.
Patient will need EUS/ERCP for FNA of the pancreatic mass and possible biliary stent placement - scheduled at [place] tomorrow coordinated.
No fevers at this time or leukocytosis, but given there is significant dilation of the bile duct with a planned EUS/ERCP Sunday, Dr. Beck placed on Zosyn.
Also noted A fib last night - plan to start AC when ok from advanced endo.
Recommend EGD at time of EUS to evaluate for PUD given NSAID use.
Original Note:
Today's Communication / Plan
-
MRI as noted
plan for down and back procedure 11/12 at [facility] as no advanced availability this week to leave at 10-10:30 tomorrow for 12:30 procedure
NPO in am
labs trending down
hold Lovenox and add compression stocking
all questions answered/reviewed risks and benefits
s/p surgical eval
trend labs
pain control
NSAID avoidance
cont miralax- may need further laxatives
cards noted with new afib will need AC eventually started -- also reviewed need for possible heparin pt prefer to hold til after procedure
Assessment / Plan
-
PT is a 83yo with hx HTN, hypercholesterolemia, hypothyroidism, PAD, TA polyps, appe, , breast biopsy with onset of epigastric pain. Pt admits to recent back strain prior to onset. Labs on admission noted with bili 1.6, AST 270, ALT 197,
alk phos 193 with lipase >4000. US abdomen with gallbladder stones without wall thickening. Neg wilks sign no biliary tract dilatation no focal abnormality in head/body of pancreas. small simple renal cyst. Pt has been seen by surgical team
recommend lap homar when able. Recent increased NSAID use with back pain. No AC use.
11/10/24 MRI abdomen:
1. SEVERE DISTAL BILIARY OBSTRUCTION. Severe intrahepatic and extrahepatic biliary dilatation. Severe gallbladder distention, mild gallbladder wall thickening, and cholelithiasis. Mild pancreatic ductal dilatation. Diagnostic possibilities are (1)
a malignant obstructing stricture in the distal common bile duct just proximal to the ampulla, (2) acute cholangitis, or (3) a recently passed stone.
2. ACUTE INTERSTITIAL EDEMATOUS PANCREATITIS.
3. 1.3 cm lesion in the anterior pancreatic head demonstrating restricted diffusion and delayed enhancement which appears to extend posteriorly around the distal common bile duct (either pancreatic adenocarcinoma or inflammation from acute
pancreatitis).
4. No MRI evidence for acute peripancreatic collection.
5. Mild chronic bilateral renal disease.
6. Small amount of right upper quadrant perihepatic ascites.
7. Large amount of fecal material in the proximal colon.
8. Moderate diverticulosis throughout the descending and sigmoid colon.
9. Severe multilevel lumbar discogenic degenerative disease.
-epigastric pain with concern for pancreatitis
-MRI with severe biliary obstruction and 1.3 cm panc head mass
-elevated LFT's and lipase
-cholelithiasis
-increased stool proximal colon
-recent back pain with increased NSAID use
-new afib since admission
other med problems:
-HTN
-hyperlipidemia
-hypothyroidism
-PAD
-prior appe
-
-TA polyps
PLAN:
MRI as noted
plan for down and back procedure 11/12 at [facility] as no advanced availability this week to leave at 10-10:30 tomorrow for 12:30 procedure
NPO in am
labs trending down
hold Lovenox and add compression stocking
all questions answered/reviewed risks and benefits
s/p surgical eval
trend labs
pain control
NSAID avoidance
cont miralax- may need further laxatives
cards noted with new afib will need AC eventually started -- also reviewed need for possible heparin pt prefer to hold til after procedure
Subjective
Subjective
Date of Service: November 11, 2024
on clear diet still with some abdominal pain no fever
Objective
Data Reviewed
Laboratory Data:
Laboratory Results
11/11/24 07:30
11/11/24 07:30
Laboratory Results
PT 14.2 Sec (11.4-14.6) 11/10/24 12:08
INR 1.06 11/10/24 12:08
Magnesium 1.8 mg/dl (1.6-2.3) 11/11/24 07:30
Total Bilirubin 2.4 mg/dl (0.2-1.3) H D 11/11/24 07:30
AST 103 U/L (14-36) H 11/11/24 07:30
ALT 112 U/L (0-35) H 11/11/24 07:30
Alkaline Phosphatase 195 U/L (38-126) H 11/11/24 07:30
Lipase 2541 U/L (23-300) H* 11/11/24 07:30
Vital Signs and I&O:
Vital Signs
Temp Pulse Resp BP Pulse Ox
98.0 F 75 16 167/61 94
11/11/24 15:40 11/11/24 15:40 11/11/24 15:40 11/11/24 15:40 11/11/24 15:40
I&O
11/10/24 11/11/24 11/12/24
06:59 06:59 06:59
Intake Total 0 / 0
Balance 2780 / 2779
Physical Exam
Physical Exam
HEENT: Moist mucous membranes and Other (mild jaundice )
Cardiology: Normal Sinus Rhythm
Pulmonary: Clear
GI: Soft, Non Distended and Tender (mild epigastric )
Extremities: No Edema
Neuro: Non Focal
[2024-11-11] MEDS: MIRALAX 17 GRAMS PO (16:30)
[2024-11-11 19:40] VITALS: BP 179/60
[2024-11-11 23:23] VITALS: BP 151/50
[2024-11-12 03:39] VITALS: BP 150/52
[2024-11-12] MEDS: ZOSYN 50 IV ×2 (04:23→21:48)
[2024-11-12] MEDS: LR 1000 IV ×2 (04:23→21:45)
--- NOTE | 2024-11-12 04:23 | DOWNTIME ---
Addendum entered by Karen Soto RN 11/12/24 14:24:
Correction: Downtime was 11/12/2024 from 0100 to 11/12/2024 at 0415
Original Note:
There was a [employer] Downtime on 11/11/2024 from 0100 to 11/12/2024 at 0415. Downtime documentation of patient's care, including medication administrations, has been reconciled in the electronic record per guidelines. Refer to the
patient's paper chart under the miscellaneous tab to see printed paper medication records and downtime forms.
[2024-11-12] MEDS: SYNTHROID 75 MCG PO (05:22)
[2024-11-12 07:42] VITALS: BP 178/59
[2024-11-12 08:02] LABS: Hematocrit 28.2 % (37.0-47.0); Hemoglobin 9.6 g/dL (12.0-16.0); Mean Corpuscular Hgb 32.2 pg (27.0-31.0); Mean Corpuscular Volume 94.6 fL (81.0-99.0); Mean Platelet Volume 10.4 fL (7.4-10.4); Platelet Count 164 10^3/uL (130-400); Red Blood Cell Count 2.98 10^6/uL (4.20-5.40); Red Cell Dist. Width 13.7 % (11.5-14.5)
[2024-11-12 08:28] LABS: ALT (SGPT) 82 U/L (0-35); AST (SGOT) 60 U/L (14-36); Alkaline Phosphatase 174 U/L (38-126); Blood Urea Nitrogen 19 mg/dl (7-17); Calcium 8.2 mg/dl (8.4-10.2); Carbon Dioxide 25 mmol/L (22-30); Chloride 107 mmol/L (98-107); Estimated Creatinine Clearance 40 ml/min; Glucose 102 mg/dl (70-99); Potassium 3.6 mmol/L (3.5-5.1); Sodium 138 mmol/L (135-145); Total Bilirubin 1.7 mg/dl (0.2-1.3); Total Protein 5.2 g/dl (6.3-8.2); eGFR 55.21
[2024-11-12] MEDS: MIRALAX PO (09:19)
[2024-11-12] MEDS: TRANDATE 300 MG PO ×2 (09:20→21:45)
[2024-11-12] MEDS: DIOVAN 320 MG PO (09:20)
[2024-11-12 09:55] VITALS: BP 150/68
[2024-11-12] MEDS: ZOSYN IV ×2 (10:00→16:49)
--- NOTE | 2024-11-12 10:10 | PTCARENOTE ---
Received patient this am AAOx3. Pt NPO with IVF infusing. Pt offered no complaints. 10:00- Acute Care here to transport patient to [facility]. IVF capped. Pt has been stable on Telemetry. Tele removed for transport by [facility] crew.
--- NOTE | 2024-11-12 10:51 | W.PN.HOSP.TC ---
Addendum entered and electronically signed by Oniel Hernández MD 11/12/24 16:16:
Discussed with GI and surgery, no pancreatic cancer but rather gallstone pancreatitis, spoke with Dr. Chapin from surgery and he recommended holding anticoagulation right now given surgery tomorrow.
Original Note:
Today's Communication/Plan
-
-Patient was transported to [facility] today and expected to return later today: Gastroenterology spoke with [facility] (Dr. Noé Hope at [facility]) for EUS/ERCP for FNA (and possibly biliary stent placement) 11/12/24 down to
[facility] Medicine and back (so not a real discharge)
-Patient will need anticoagulation for new A-Fib after EUS/ERCP/FNA above as per funeral pre need consultant and patient discussion
-Once patient returns from [facility], patient needs to be placed on telemetry
Assessment / Plan
Assessment / Plan
Physical Exam
General: Well Developed, Well Nourished, No Apparent Distress, Comfortable and Conversant
HEENT: Normocephalic, Atraumatic
Respiratory: Clear to Auscultation Bilaterally
Cardiac: Irregular Rhythm and S1/S2
GI: Soft, Nondistended, Normal Bowel Sounds and Tender (mild, RUQ )
Skin: Warm and Dry
Neuro: Awake, Alert, Oriented and AO x 3
Psych: Calm and Intact Judgement/Insight
Assessment/Plan
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 The pain radiated to her back.
Patient also c/o nausea without vomiting.
She denied to other symptoms including fevers/chills etc.
Abd US:
Gallbladder stones without wall thickening. Cannot entirely exclude some pericholecystic fluid. Negative sonographic Angeles's sign. No findings to suggest biliary tract dilatation.
No focal abnormality of the visualized head/body of pancreas.
Small simple right renal cyst.
#Right upper quadrant abdominal pain due to pancreatitis caused by underlying pancreatic mass with double duct sign concerning for malignancy
#Transaminitis due to above
#Concern for Cholangitis
lipase > 4000, repeat was previously ordered and level decreased
LFTs improving, cont to monitor
Abdominal ultrasound as above
MRCP with severe biliary obstruction, severe gallbladder distension, cholelithiasis, 1.3 cm lesion in the anterior pancreatic head
N.p.o. with IV fluid LR
Pain control with IV Morphine PRN
GI consulted: GI spoke with [facility] (Dr. Noé Hope at [facility]) for possible EUS/ERCP for FNA (and possibly biliary stent placement) 11/12/24 down to [facility] and back (so not a real discharge)
General Surgery consulted -- no acute general surgical intervention needed at this time -- recommendation to consult Dr. Owens/surgical oncology for further recommendations once the diagnosis has been more clearly established.
Continue with Zosyn
#New-Onset Paroxysmal Atrial Fibrillation
-Patient sees Dr. Kerns outpatient, but has not been found to have A-Fib before, as per patient
-Rates controlled
-Anticoagulation likely after EUS/ERCP/FNA above as per funeral pre need consultant and patient discussion
-Consulted cardiology
#Hypertensive urgency
BP 200/50 on admission
Continue ORAL PATHOLOGIST labetalol
Continue Valsartan
IV hydralazine as needed
#Hyperlipidemia
Hold statin with current transaminitis
#Hypothyroidism
continue ORAL PATHOLOGIST Synthroid
#Additional Abdominal MRI findings:
Mild chronic bilateral renal disease.
Small amount of right upper quadrant perihepatic ascites.
Large amount of fecal material in the proximal colon -- continue scheduled Miralax
Moderate diverticulosis throughout the descending and sigmoid colon.
Severe multilevel lumbar discogenic degenerative disease.
DVT Prophylaxis: Lovenox SQ held for EUS/ERCP/FNA today at [facility]
Code Status: Full Code
Anticipated Discharge: > 48 hours
Subjective/Interval History
-
Date of Service: November 12, 2024
Patient was seen and examined. She reported the same abdominal tenderness, otherwise no other new significant symptoms or complaints.
Objective Data
-
Labs:
Laboratory Results
11/12/24
07:25
WBC 10.0
Hgb 9.6 L
Hct 28.2 L
Plt Count 164
Sodium 138
Potassium 3.6
Chloride 107
Carbon Dioxide 25
BUN 19 H
Creatinine 1.0
Glucose 102 H
Calcium 8.2 L
Total Bilirubin 1.7 H
AST 60 H
ALT 82 H
Alkaline Phosphatase 174 H
Vital Signs:
Vital Signs
Temp Pulse Resp BP Pulse Ox
98.6 F 70 18 150/68 95
11/12/24 07:42 11/12/24 09:55 11/12/24 09:55 11/12/24 09:55 11/12/24 09:55
I&O
11/11/24 11/12/24 11/13/24
06:59 06:59 06:59
Intake Total 2780 / 2780 1370 / 1370
Balance 2780 / 2780 1370 / 1370
--- NOTE | 2024-11-12 16:02 | W.PN.UPDATE ---
Update Note
Progress Note Update
Received update from [facility] patient does not have pancreatic mass, all gallstone pancreatitis. No stones in the common bile duct. Recommend repeat MRI with MRCP with and without contrast in 6 to 8 weeks to reevaluate. I sent
message to cardiology, general surgery, hospitalist to update them. Will start clear liquid diet. Okay GI point of view to start anticoagulation but may need to hold with possible cholecystectomy.
--- NOTE | 2024-11-12 16:08 | W.PN.SURGUPD ---
Surgical Update
Surgical Update
Brief General Surgery note:
Per report, no evidence of cancer in the pancreas or bile ducts.
Her pancreatitis has improved and her bilirubin is falling, likely from a passed stone
Will tentatively add her on to the OR schedule for tomorrow.
N.p.o. at midnight, continue antibiotics.
Will continue to hold anticoagulation.
[2024-11-12 20:31] VITALS: BP 188/66
[2024-11-12 23:45] VITALS: BP 121/45
[2024-11-13] VITALS (14 sets, daily range): BP systolic 119–185; BP diastolic 50–81
--- NOTE | 2024-11-13 01:38 | PTCARENOTE ---
Pt received back from [facility] post procedure. Pt denies of any pain,ambulates to BR with 1 person assist. NUT ROASTER line construction superintendent made aware of pt BP & medications provided.Pt asymptomatic otherwise.Pt oriented to room & call meraz in reach.
[2024-11-13] MEDS: ZOSYN 50 IV ×2 (05:36→10:51)
[2024-11-13] MEDS: SYNTHROID 75 MCG PO (05:38)
--- NOTE | 2024-11-13 05:55 | PTCARENOTE ---
Pt aaox3 able to make her needs known.Pt noted to be in afibb on monitor,prior sinus rhythm.EKG was done on pt showed Aflutter with AVblock.RADIO REPORTER national van owner operator made aware of pt vital signs,rhythm & pt asymptomatic. Pt noted to be in aflutter on prior EKG.
No new orders at this time.Plan of care continued on pt.
--- NOTE | 2024-11-13 07:44 | W.PN.HOSP.TC ---
Today's Communication/Plan
-
Lap homar today
Stop antibiotics
Low fat diet
Anticoagulation can be started November 16
Anticipate discharge tomorrow as per surgery monitor overnight
Assessment / Plan
Assessment / Plan
Physical Exam
General: Not in acute distress
HEENT: Normocephalic, Atraumatic
Respiratory: Clear to Auscultation Bilaterally
Cardiac: Irregular Rhythm and S1/S2
GI: Soft, Nondistended, Normal Bowel Sounds and Tender (mild, RUQ )
Skin: Warm and Dry
Neuro: Awake, Alert, Oriented x3
Psych: Calm and Intact Judgement/Insight
Assessment/Plan
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 The pain radiated to her back.
Patient also c/o nausea without vomiting.
She denied to other symptoms including fevers/chills etc.
Abd US:
Gallbladder stones without wall thickening. Cannot entirely exclude some pericholecystic fluid. Negative sonographic Angeles's sign. No findings to suggest biliary tract dilatation.
No focal abnormality of the visualized head/body of pancreas.
Small simple right renal cyst.
#Right upper quadrant abdominal pain due to pancreatitis caused by underlying pancreatic mass with double duct sign concerning for malignancy
#Transaminitis due to above
#Concern for Cholangitis
MRCP with severe biliary obstruction, severe gallbladder distension, cholelithiasis, 1.3 cm lesion in the anterior pancreatic head
Low fat diet post-op lap homar today
GI consulted: GI spoke with [facility] (Dr. Noé Hope at [facility]) patient on 11/12/24 went to [facility] for EUS/ERCP for FNA and returned -- this did NOT show pancreatic cancer, just gallstone pancreatitis
Pain control with IV Morphine PRN and Oxy prn
General Surgery consulted -- lap homar performed today, 11/13/24
Stop Zosyn postoperatively
#New-Onset Paroxysmal Atrial Fibrillation
-Patient sees Dr. Kerns outpatient, but has not been found to have A-Fib before, as per patient
-Rates controlled
-Anticoagulation likely after EUS/ERCP/FNA above as per beading sawyer and patient discussion
-Consulted cardiology
-Discussed timing of anticoagulation with surgeon Dr. Jones and he recommended starting anticoagulation 72 hours post-op, on the evening of November 16, 2024
-Once recovered likely outpt DCCV in ~45 days or so; as long as no missed doses of anticoagulation
#Hypertensive urgency
BP 200/50 on admission
Continue LEAD PAINTER labetalol
Continue Valsartan
Will consider Nifedipine prior to discharge if blood pressure still significantly elevated
IV hydralazine as needed
#Several Liquid Brown Bowel Movements 11/12/24 and 11/13/24
-Possibly from antibiotics
-Hold Miralax/laxatives
-Check stool studies
#Hyperlipidemia
Hold statin with current transaminitis
#Hypothyroidism
continue LEAD PAINTER Synthroid
#Additional Abdominal MRI findings:
Mild chronic bilateral renal disease.
Small amount of right upper quadrant perihepatic ascites.
Large amount of fecal material in the proximal colon -- hold Miralax given liquid brown stools on 11/12/24 and 11/13/24
Moderate diverticulosis throughout the descending and sigmoid colon.
Severe multilevel lumbar discogenic degenerative disease.
DVT Prophylaxis: SCDs. Will resume Lovenox subq once okay to resume as per surgery
Code Status: Full Code
Anticipated Discharge: Within 24 hours
Subjective/Interval History
-
Date of Service: November 13, 2024
Patient was seen and examined. She reported three watery brown stools today and also had some watery brown stools yesterday. She denied any new abdominal pain or any other symptoms or complaints.
Objective Data
-
Vital Signs:
Vital Signs
Temp Pulse Resp BP Pulse Ox
98.6 F 86 18 162/70 95
11/13/24 05:11 11/13/24 05:11 11/13/24 05:11 11/13/24 05:11 11/13/24 05:11
I&O
11/12/24 11/13/24 11/14/24
06:59 06:59 06:59
Intake Total 1370 / 1370
Balance 1370 / 1370
[2024-11-13] MEDS: DIOVAN 320 MG PO (08:05)
[2024-11-13] MEDS: TRANDATE 300 MG PO ×2 (08:06→21:03)
[2024-11-13] MEDS: MIRALAX PO (08:10)
[2024-11-13 09:07] LABS: Hematocrit 29.6 % (37.0-47.0); Mean Corp Hgb Conc. 33.8 g/dL (33.0-37.0); Mean Corpuscular Hgb 31.7 pg (27.0-31.0); Mean Platelet Volume 10.3 fL (7.4-10.4); Platelet Count 196 10^3/uL (130-400); Red Blood Cell Count 3.15 10^6/uL (4.20-5.40); Red Cell Dist. Width 13.3 % (11.5-14.5); White Blood Cell Count 8.7 10^3/uL (4.8-10.8)
--- NOTE | 2024-11-13 09:09 | W.PN.CD ---
Today's Communication / Plan
-
AC once OK from surgical perspective
Plan for DCCV when recovered as outpt
Can add Nifedipine 30 mg if remains significant HTN
Impression / Plan
-
Paroxysmal atrial fibrillation
- HR controlled between 50s-90s.
- Continue labetalol.
- [id number] Score of 4.
- Eliquis starting when OK from surgical perspective
- If post-procedure, would recommend initiating DOAC by 10 PM if can be done safely.
- Once recovered likely outpt DCCV in ~45 days or so; as long as no missed doses of AC
Primary hypertension
Hypertensive urgency possibly secondary to significant pain
- Continue labetalol and valsartan.
- can add nifedipine prior to DC if significantly elevated
Hyperlipidemia
- Continue statin.
Pancreatitis secondary to gallstones
Hypothyroidism
Peripheral arterial occlusive disease
Physical Exam
Vital Signs/Labs
Vital Signs
Temp Pulse Resp BP Pulse Ox
98 F 69 16 175/71 94
11/13/24 07:55 11/13/24 09:04 11/13/24 07:55 11/13/24 09:04 11/13/24 07:55
11/13/24 08:45
11/12/24 07:25
PT 14.2 Sec (11.4-14.6) 11/10/24 12:08
INR 1.06 11/10/24 12:08
Magnesium 1.8 mg/dl (1.6-2.3) 11/11/24 07:30
Physical Exam
Constitutional: No acute distress
EENT: Anicteric
Cardiovascular: Pedal edema is absent and Rhythm/rate is irregular
Respiratory: Respiratory effort normal and Lungs clear to auscul.
GI: Soft
Neuro/Psych: AO x 3
Data Reviewed
-
Date of Service: November 13, 2024
EKG: Tracing Personally Visualized and interpreted (af)
Echo: Report Reviewed by me
Labs: Labs Reviewed by me
--- NOTE | 2024-11-13 09:44 | W.PN.GS2 ---
Addendum entered and electronically signed by Pravin Jones MD 11/13/24 10:11:
Patient seen and examined in follow-up with surgical [employer]. Agree with documented progress note.
No active abdominal pain.
EUS at [facility] without findings to intervene on prior to cholecystectomy
AFVSS
NAD AAO x 3
Hemoglobin stable 10 this a.m.. Type and screen out of abundance of precaution preoperatively done as well.
A/P: 83-year-old female with probable gallstone mediated pancreatitis, resolving with improving labs and no further symptoms of pancreatitis
Discussed with patient's indications for cholecystectomy which she is in agreement to proceed with at this index hospitalization.
Patient has been added onto the OR schedule for today
Laparoscopic cholecystectomy with cholangiogram operative procedure was reviewed in detail with the patient including the operative technique, alternative treatment options benefits and risk such as but not limited to bleeding requiring transfusion
(in the setting of preoperative anemia but still unlikely to be necessary), infectious and wound related complications, iatrogenic injury to surrounding viscera, bile duct injury, bile leak. Discussed the typical postoperative recovery and
potential for fatty food intolerances after cholecystectomy. Any of the patient's concerns or questions were fully addressed and informed consent was obtained.
Original Note:
Today's Communication / Plan
-
OR today
Assessment / Plan
-
This is an 83-year-old female with a history of , appendectomy who presents to our hospital with epigastric abdominal pain found to have gallstone pancreatitis.
MRCP on 11/09/24 showed severe biliary obstruction, severe gallbladder distention and cholelithiasis with a ?1.3 cm lesion in the anterior pancreatic head.
Taken to [facility] on 11/12/24 for EUS/ERCP/FNA without concern for pancreatic mass/ca noted
Pancreatitis improved, pain and labs improved. Suspect passed stone
Afebrile, hypertensive, no tachycardia
Plan:
NPO for OR today for lap homar
Currently on Zosyn
Appreciate cardiology eval for risk stratification
Would reccomend holding DOAC for minimum of 48h post op
Subjective Data
-
Date of Service: November 13, 2024
Patient seen and examined at bedside with Dr. Jones. Denies n/v. Denies pain.
Objective Data
-
Intake and Output
11/12/24 11/13/24 11/14/24
06:59 06:59 06:59
Intake Total 1370 / 1370
Balance 1370 / 1370
Intake:
Oral fluids 270 / 270
IV fluids (Total) 1000 / 1000
IV piggybacks 100 / 100
Other:
Number of approximated MODERATE 2 3 1
amounts of urine
Vital Signs
Temp Pulse Resp BP Pulse Ox
98 F 69 16 175/71 94
11/13/24 07:55 11/13/24 09:04 11/13/24 07:55 11/13/24 09:04 11/13/24 07:55
Lab Results
11/13/24 08:45
11/12/24 07:25
Calcium 8.2 mg/dl (8.4-10.2) L 11/12/24 07:25
Magnesium 1.8 mg/dl (1.6-2.3) 11/11/24 07:30
Total Bilirubin 1.7 mg/dl (0.2-1.3) H 11/12/24 07:25
Direct Bilirubin 0.7 mg/dl (0.0-0.4) H 11/09/24 11:28
AST 60 U/L (14-36) H 11/12/24 07:25
ALT 82 U/L (0-35) H 11/12/24 07:25
Alkaline Phosphatase 174 U/L (38-126) H 11/12/24 07:25
Total Protein 5.2 g/dl (6.3-8.2) L 11/12/24 07:25
Albumin 3.0 g/dl (3.5-5.0) L 11/12/24 07:25
Physical Exam
-
GENERAL/NEURO: Awake, Alert, no distress
CHEST: Unlabored breathing on RA
ABDOMEN: Soft, NT, ND
--- NOTE | 2024-11-13 09:58 | W.PN.GI.CBS2 ---
Today's Communication / Plan
-
CCY today, MRI 6-8 weeks, GI signing off
Assessment / Plan
-
83-year-old female with history of hypertension, high cholesterol, hypothyroidism presenting with complaints of back pain and epigastric pain in the last 3 weeks, also noted to have lost about 10 pounds and pain persistent and worsening and came to
the emergency room. In the ER, she was noted to have elevated bilirubin, 1.6 on admission and now 5.2 with elevated AST, ALT and alkaline phosphatase and lipase. Subsequent MRI showing double duct sign with 1.3 x 1.2 cm mass in the pancreatic head
and severe diffuse dilation of the intra and extrahepatic biliary tract.
- Pancreatitis caused by underlying pancreatic mass with double duct sign concerning for malignancy. EUS NEGATIVE; no panc mass, no stone in CBD.
All inflammation from gallstone pancreatitis
D/w surgery last pm plan for OR for CCY today
Plan to start AC per surgery (new onset A fib)
Diet per surgery
D/w Jose yesterday recommend repeat MRI/MRCP 6-8 weeks re-assess pancreas - I sent msg to office to work on auth and informed patient
GI will sign off pls call with questions
Subjective
Subjective
Date of Service: November 13, 2024
no pain no complaints
Objective
Data Reviewed
Laboratory Data:
Laboratory Results
11/13/24 08:45
11/12/24 07:25
Laboratory Results
PT 14.2 Sec (11.4-14.6) 11/10/24 12:08
INR 1.06 11/10/24 12:08
Magnesium 1.8 mg/dl (1.6-2.3) 11/11/24 07:30
Total Bilirubin 1.7 mg/dl (0.2-1.3) H 11/12/24 07:25
AST 60 U/L (14-36) H 11/12/24 07:25
ALT 82 U/L (0-35) H 11/12/24 07:25
Alkaline Phosphatase 174 U/L (38-126) H 11/12/24 07:25
Lipase 2541 U/L (23-300) H* 11/11/24 07:30
Vital Signs and I&O:
Vital Signs
Temp Pulse Resp BP Pulse Ox
98 F 69 16 175/71 94
11/13/24 07:55 11/13/24 09:04 11/13/24 07:55 11/13/24 09:04 11/13/24 07:55
I&O
11/12/24 11/13/24 11/14/24
06:59 06:59 06:59
Intake Total 1370 / 1370
Balance 1370 / 1370
Physical Exam
Physical Exam
GI: Non Distended and Non Tender
[2024-11-13] MEDS: LR IV (10:33)
[2024-11-13] MEDS: LR 1000 IV ×2 (10:49→22:04)
--- NOTE | 2024-11-13 12:47 | CM ---
Chart reviewed. Care ongoing
OR today for hue graf
Plan: Home, no needs at this time
--- NOTE | 2024-11-13 13:10 | W.SUR.PREOP ---
Pre-Operative Surgical Note
-
I have examined this patient prior to the performance of the scheduled procedure.
The patient's condition is unchanged from the time of the current History and
Physical and the patient is able to undergo the scheduled procedure.
--- NOTE | 2024-11-13 14:35 | W.IMMPOSTOP ---
Addendum entered and electronically signed by Pravin Jones MD 11/13/24 14:56:
#[id number]
Original Note:
Surgical Immed Post Op Note
-
Primary Surgeon: Pravin Jones MD
Assisting Surgeon: Celestino BOSCH
Pre-op Diagnosis: Gallstone mediated pancreatitis, gallstones
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
Procedure Performed: Laparoscopic cholecystectomy with intraoperative cholangiogram
Anesthesia Type: GETA +0.25% Marcaine with epi
Specimen / Cultures: Gallbladder
Estimated Blood Loss: 6 mL
Complications: None immediate
Operative Findings: Chronically distended gallbladder. Cystic duct controlled with clips. Cystic artery controlled with clip. Posterior branch from liver to gallbladder along body controlled with clip. Intraoperative cholangiogram normal. No
disruption of gallbladder with cholecystectomy.
No further antibiotics needed postoperatively
Low-fat diet postop as tolerated
Routine postoperative care
Would anticipate discharge tomorrow from surgical standpoint
Updated patient's daughter via phone call
[2024-11-13 17:17] LABS: Blood Urea Nitrogen 17 mg/dl (7-17); Calcium 8.6 mg/dl (8.4-10.2); Carbon Dioxide 26 mmol/L (22-30); Chloride 106 mmol/L (98-107); Estimated Creatinine Clearance 50 ml/min; Glucose 104 mg/dl (70-99); Sodium 139 mmol/L (135-145); eGFR > 60.00
[2024-11-13] MEDS: LOVENOX 40 MG SC (22:05)
[2024-11-14] VITALS (8 sets, daily range): BP systolic 145–211; BP diastolic 45–75
[2024-11-14] MEDS: SYNTHROID 75 MCG PO (05:17)
[2024-11-14 07:36] LABS: Hematocrit 29.5 % (37.0-47.0); Mean Corp Hgb Conc. 33.9 g/dL (33.0-37.0); Mean Corpuscular Hgb 32.1 pg (27.0-31.0); Mean Corpuscular Volume 94.6 fL (81.0-99.0); Platelet Count 221 10^3/uL (130-400); Red Blood Cell Count 3.12 10^6/uL (4.20-5.40); Red Cell Dist. Width 13.2 % (11.5-14.5); White Blood Cell Count 7.6 10^3/uL (4.8-10.8)
[2024-11-14] MEDS: TRANDATE 300 MG PO ×2 (08:00→19:59)
[2024-11-14] MEDS: LR IV ×2 (08:00→09:49)
[2024-11-14] MEDS: DIOVAN 320 MG PO (08:00)
[2024-11-14] MEDS: MIRALAX PO (08:01)
[2024-11-14 08:14] LABS: ALT (SGPT) 64 U/L (0-35); AST (SGOT) 51 U/L (14-36); Albumin 3.2 g/dl (3.5-5.0); Alkaline Phosphatase 165 U/L (38-126); Blood Urea Nitrogen 21 mg/dl (7-17); Calcium 8.6 mg/dl (8.4-10.2); Carbon Dioxide 23 mmol/L (22-30); Chloride 107 mmol/L (98-107); Estimated Creatinine Clearance 44 ml/min; Glucose 132 mg/dl (70-99); Magnesium 2.1 mg/dl (1.6-2.3); Sodium 139 mmol/L (135-145); Total Protein 5.5 g/dl (6.3-8.2); eGFR > 60.00
[2024-11-14] MEDS: APRESOLINE 10 MG IV (09:35)
--- NOTE | 2024-11-14 09:54 | W.PN.GS2 ---
Today's Communication / Plan
-
-- OK for DC from surgical perspective
-- F/u Dr. Jones in 2 weeks
Assessment / Plan
-
This is an 83-year-old female with a history of , appendectomy who presents to our hospital with epigastric abdominal pain found to have gallstone pancreatitis.
MRCP on 11/09/24 showed severe biliary obstruction, severe gallbladder distention and cholelithiasis with a ?1.3 cm lesion in the anterior pancreatic head.
Taken to [facility] on 11/12/24 for EUS/ERCP/FNA without concern for pancreatic mass/ca noted
Pancreatitis improved, pain and labs improved. Suspect passed stone
POD#1 s/p laparoscopic cholecystectomy with IOC
AVSS
Labs notable for normal WBC, stable Hb, normal renal function, downtrending bilirubin and LFTs
Recovering well. No postoperative concerns.
Plan:
-- LFD
-- Pain control: Tylenol, ibuprofen, Oxycodone
-- Abx: None further needed
-- HLIV
-- Home meds
-- DVT: Lovenox
-- OK for DC from surgical perspective
-- F/u Dr. Jonse in 2 weeks
Subjective Data
-
Date of Service: November 14, 2024
No complaints. Pain well-controlled, mild soreness in RUQ. No nausea or vomiting. No fevers or chills.
Objective Data
-
Intake and Output
11/13/24 11/14/24 11/15/24
06:59 06:59 06:59
Intake Total 1120 / 1120
Balance 1120 / 1120
Intake:
Oral fluids 120 / 120
IV fluids (Total) 1000 / 1000
Other:
Number of approximated MODERATE 3 2
amounts of urine
Vital Signs
Temp Pulse Resp BP Pulse Ox
98.2 F 61 18 181/57 96
11/14/24 07:58 11/14/24 09:35 11/14/24 07:58 11/14/24 09:35 11/14/24 07:58
Lab Results
11/14/24 07:08
11/14/24 07:08
Calcium 8.6 mg/dl (8.4-10.2) 11/14/24 07:08
Magnesium 2.1 mg/dl (1.6-2.3) 11/14/24 07:08
Total Bilirubin 1.0 mg/dl (0.2-1.3) 11/14/24 07:08
Direct Bilirubin 0.7 mg/dl (0.0-0.4) H 11/09/24 11:28
AST 51 U/L (14-36) H 11/14/24 07:08
ALT 64 U/L (0-35) H 11/14/24 07:08
Alkaline Phosphatase 165 U/L (38-126) H 11/14/24 07:08
Total Protein 5.5 g/dl (6.3-8.2) L 11/14/24 07:08
Albumin 3.2 g/dl (3.5-5.0) L 11/14/24 07:08
Physical Exam
-
Gen: NAD
Abd: soft, mild tenderness, ND, non-peritoneal, incisions c/d/i - no erythema, ecchymosis or drainage
Patient has a lopez catheter: No
Patient has a central line: No
--- NOTE | 2024-11-14 12:34 | W.PN.HOSP.TC ---
Today's Communication/Plan
-
Discharge today
Assessment / Plan
Assessment / Plan
Physical Exam
General: Not in acute distress
HEENT: Normocephalic, Atraumatic
Respiratory: Clear to Auscultation Bilaterally
Cardiac: Irregular Rhythm and S1/S2
GI: Soft, Nondistended, Normal Bowel Sounds and Tender (mild, RUQ )
Skin: Warm and Dry
Neuro: Awake, Alert, Oriented x3
Psych: Calm and Intact Judgement/Insight
Assessment/Plan
HPI: 83-year-old female with history hypertension, hyperlipidemia, hypothyroidism; p/w acute onset RUQ abdominal pain that started at around 10 PM the night [employer]. The pain radiated to her back.
Patient also c/o nausea without vomiting.
She denied to other symptoms including fevers/chills etc.
Abd US:
Gallbladder stones without wall thickening. Cannot entirely exclude some pericholecystic fluid. Negative sonographic Angeles's sign. No findings to suggest biliary tract dilatation.
No focal abnormality of the visualized head/body of pancreas.
Small simple right renal cyst.
#Right upper quadrant abdominal pain due to pancreatitis caused by underlying pancreatic mass with double duct sign concerning for malignancy
#Transaminitis due to above
#Concern for Cholangitis
#Lap Homar surgery performed on 11/13/24
MRCP with severe biliary obstruction, severe gallbladder distension, cholelithiasis, 1.3 cm lesion in the anterior pancreatic head
Low fat diet post-op lap homar
GI consulted: GI spoke with [facility] (Dr. Noé Hope at [facility]) patient on 11/12/24 went to [facility] for EUS/ERCP for FNA and returned -- this did NOT show pancreatic cancer, just gallstone pancreatitis
Pain control with Tylenol, ibuprofen, Oxycodone
General Surgery consulted -- lap homar performed 11/13/24
Stopped Zosyn postoperatively
-Per Dr. Jones, can start Eliquis for anticoagulation on Sunday evening
-Follow-up with Dr. Jones in 2 weeks
#New-Onset Paroxysmal Atrial Fibrillation
-Patient sees Dr. Kerns outpatient, but has not been found to have A-Fib before, as per patient
-Rates controlled
-Anticoagulation likely after EUS/ERCP/FNA above as per drug abuse treatment specialist and patient discussion
-Consulted cardiology
-Discussed timing of anticoagulation with surgeon Dr. Jones and he recommended starting Eliquis 72 hours post-op, on the evening of November 16, 2024
-Once recovered likely outpt DCCV in ~45 days or so; as long as no missed doses of anticoagulation
#Hypertensive urgency
BP 200/50 on admission
Continue [employer] labetalol
Continue Valsartan
Will consider Nifedipine prior to discharge if blood pressure still significantly elevated
IV hydralazine as needed
#Several Liquid Brown Bowel Movements 11/12/24 and 11/13/24
-Possibly from antibiotics
-Resolved
#Hyperlipidemia
Hold statin with recent transaminitis
Resume with outpatient PCP
#Hypothyroidism
continue [employer] Synthroid
#Additional Abdominal MRI findings:
Mild chronic bilateral renal disease.
Small amount of right upper quadrant perihepatic ascites.
Large amount of fecal material in the proximal colon
Moderate diverticulosis throughout the descending and sigmoid colon.
Severe multilevel lumbar discogenic degenerative disease.
DVT Prophylaxis: SCDs. Lovenox subq
Code Status: Full Code
More than 30 minutes spent in discharge including
Final examination of the patient
Summarizing hospital stay
Instructions for continuing care to all relevant caregivers
Preparation of discharge records, prescriptions, and referral forms
Total time spent (in minutes): 42
Anticipated Discharge: Today
Subjective/Interval History
-
Date of Service: November 14, 2024
Patient was seen and examined. She denied any abdominal pain or any other new symptoms or complaints. She is tolerating her diet fine.
Objective Data
-
Labs:
Laboratory Results
11/14/24
07:08
WBC 7.6
Hgb 10.0 L
Hct 29.5 L
Plt Count 221
Sodium 139
Potassium 4.0
Chloride 107
Carbon Dioxide 23
BUN 21 H
Creatinine 0.9
Glucose 132 H
Calcium 8.6
Total Bilirubin 1.0
AST 51 H
ALT 64 H
Alkaline Phosphatase 165 H
Vital Signs:
Vital Signs
Temp Pulse Resp BP Pulse Ox
98.2 F 61 18 181/57 96
11/14/24 07:58 11/14/24 09:35 11/14/24 07:58 11/14/24 09:35 11/14/24 07:58
I&O
11/13/24 11/14/24 11/15/24
06:59 06:59 06:59
Intake Total 1120 / 1120
Balance 1120 / 1120
--- NOTE | 2024-11-14 12:37 | CM ---
Patient poss for d/c today
Met w/ patient bedside, agreeable to d/c. IMM verbally reviewed, copy provided, copy on chart
Daughter will transport home
No CM needs at this time
Plan: Home, no needs
[2024-11-14] MEDS: PROCARDIA XL (EXTENDED RELEASE) 30 MG PO (17:14)
--- NOTE | 2024-11-14 18:01 | W.DCSUMMARY ---
Discharge Summary
Discharge Data
Date of Admission: 11/09/24
Date of Discharge: 11/14/24
Total time spent discharging patient (in min): 42
-
Pending Results: Yes
Additional Pending Results:
Gallbladder biopsy results
Hospital Course
83 y/o female who presented with abdominal pain. Patient was found to have gallstone pancreatitis, made N.P.O., started on intravenous fluids, and gastroenterology and infectious disease were consulted. MRI showed double duct sign with 1.3 x 1.2 cm
mass in the pancreatic head and severe diffuse dilation of the intra and extrahepatic biliary tract; there was concern for a possible pancreatic cancer (which was later ruled out). Given the significant biliary duct dilation and planned EUS/ERCP,
patient was started on Zosyn. Cardiology was consulted new-onset atrial fibrillation. Patient preferred to hold off on anticoagulation until after the EUS/ERCP. Patient was transported to [facility], where EUS/ERCP showed NO
pancreatic cancer, but did show gallstone pancreatitis. On 11/13/24, patient had laparoscopic cholecystectomy with intraoperative cholangiogram. Patient did well postoperatively and stable for discharge.
Discharge Plan
-
Patient Disposition: Home (Routine Discharge)
Discharge Diagnosis/Procedures: Diverticulosis
Gallstone pancreatitis
Laparoscopic cholecystectomy
Constipation
Right upper quadrant abdominal pain due to pancreatitis caused by underlying pancreatic mass with double duct sign concerning for malignancy
Transaminitis due to above
Concern for Cholangitis
Lap Mary surgery performed on 11/13/24
New-Onset Paroxysmal Atrial Fibrillation
Hypertensive urgency
Several Liquid Brown Bowel Movements 11/12/24 and 11/13/24-suspected from antibiotics-Resolved after antibiotics stopped
Hyperlipidemia
Hypothyroidism
Small simple right renal cyst on renal ultrasound
Abdominal MRI (as per radiologist's report):
'FINDINGS:
LIVER: There is a small amount of right upper quadrant perihepatic ascites. The liver is normal in size. There is no MRI evidence for diffuse hepatic steatosis or abnormal iron deposition in the liver. There are no focal hepatic lesions identified.
GALLBLADDER: The gallbladder is severely distended measuring 9.6 cm in length. There is mild diffuse thickening of the gallbladder wall. The anterior gallbladder wall measures 3.8 mm in thickness. There are small cystic changes in the wall the
gallbladder fundus consistent with adenomyomatosis. There are a small number of small layering gallstones in the gallbladder lumen. There is a minimal amount of peritoneal fluid in the right upper quadrant around the gallbladder.
BILE DUCTS: There is severe diffuse intrahepatic and extrahepatic biliary dilatation. The intrahepatic bile ducts, common hepatic duct, cystic duct, and common bile duct is distended. The common bile duct measures 1.0 cm in diameter. There is no
evidence for choledocholithiasis in the common bile duct.
PANCREAS: The pancreatic duct is distended to 6.1 mm in diameter in the pancreatic head. There is diffuse pancreatic edema and mild diffuse peripancreatic edema consistent with acute interstitial edematous pancreatitis. There is mild diffuse
pancreatic parenchymal lipomatosis. There is no evidence for pancreatic or peripancreatic necrosis. There is a focal region of irregular shaped hyper enhancing soft tissue in the anterior aspect of the pancreatic head located along the anterior
margin of the common bile duct measuring 1.3 x 1.2 cm in size (image #143, series #1001) demonstrating delayed enhancement. This delayed enhancement appears to extend posteriorly around the gary of the distal common bile duct and pancreatic duct
level of the ampulla. The small 1.3 cm focal lesion in the anterior pancreatic head demonstrates restricted diffusion. There is a 4.2 mm cyst in the anterior pancreatic tail and a 2.4 mm cyst in the posterior pancreatic tail, neither of which
communicates with the main pancreatic duct.
ADRENAL GLANDS: The adrenal glands appear normal in size without evidence for mass.
KIDNEYS: There is mild bilateral renal cortical volume loss. There is no hydronephrosis in either kidney. There are small parapelvic cysts in both kidneys. There is a moderate amount of edema and fat stranding around both kidneys. There is a small
amount of nonloculated fluid around the kidneys.
ABDOMINAL AORTA: There is atherosclerotic plaque in the abdominal aorta. The infrarenal abdominal aorta measures 1.6 cm AP dimension. There is no retroperitoneal lymphadenopathy.
SPLEEN: The spleen is normal in size. There is no mesenteric lymphadenopathy.
GASTROINTESTINAL TRACT: There is a small sliding-type hiatal hernia. There is no abnormal distention or wall thickening in the stomach, duodenum, or jejunum. There is no abnormal distention or wall thickening in the ileal small bowel loops. There is
been a previous appendectomy. The cecum and ascending colon are distended to 6 cm diameter with air and fecal material. There is no abnormal colonic wall thickening. The descending colon appears nearly completely collapsed. There is moderate
diverticulosis throughout the descending colon and sigmoid colon.
There are bilateral adnexal cysts measuring 2.5 cm in size on the right and 2.5 cm in size in the left, neither of which contains a solid mural nodule or thick internal septation.
CHEST: There is mild to moderate cardiomegaly. There is no pericardial or left pleural effusion. There is a minimal right pleural effusion. There is mild elevation of the anterior right hemidiaphragm.
SKELETON: There is a moderate right convex curvature of the midlumbar spine. There is severe discogenic degenerative disease at L2/L3, L3/L4, and L4/L5 with severe loss of intervertebral disc space height and large vertebral body endplate
osteophytes. There are degenerative endplate bone marrow changes throughout the midlumbar spine. There is a 1.8 cm hemangioma in the L1 vertebral body. There are chronic superior and inferior endplate fractures of T12 with severe loss of vertebral
body height and suggestion of previous vertebroplasty treatment.
IMPRESSION:
1. SEVERE DISTAL BILIARY OBSTRUCTION. Severe intrahepatic and extrahepatic biliary dilatation. Severe gallbladder distention, mild gallbladder wall thickening, and cholelithiasis. Mild pancreatic ductal dilatation. Diagnostic possibilities are (1)
a malignant obstructing stricture in the distal common bile duct just proximal to the ampulla, (2) acute cholangitis, or (3) a recently passed stone.
2. ACUTE INTERSTITIAL EDEMATOUS PANCREATITIS.
3. 1.3 cm lesion in the anterior pancreatic head demonstrating restricted diffusion and delayed enhancement which appears to extend posteriorly around the distal common bile duct (either pancreatic adenocarcinoma or inflammation from acute
pancreatitis).
4. No MRI evidence for acute peripancreatic collection.
5. Mild chronic bilateral renal disease.
6. Small amount of right upper quadrant perihepatic ascites.
7. Large amount of fecal material in the proximal colon.
8. Moderate diverticulosis throughout the descending and sigmoid colon.
9. Severe multilevel lumbar discogenic degenerative disease.'
Condition: Good
Diet: As tolerated, Low Fat, Low Cholesterol and Low Sodium
Additional Diets: Smaller meals initially after surgery as abdominal bloating and distention may be common for the first few days
Activity: No strenuous activity
Driving Restrictions: No driving 2 to 3 days or if using narcotics
Bathing Restrictions: OK to Shower
Blood Work: CBC, CMP and Magnesium with your primary care provider's office in 3 to 4 days
Wound Care: Glue at surgical sites typically peels off in 2 to 3 weeks
Activity Restrictions/Additional Instructions:
CHECK YOUR BLOOD PRESSURE AT LEAST 3 TO 4 TIMES PER DAY AT HOME. IF YOUR SYSTOLIC BLOOD PRESSURE STAYS OVER 170 mmHg or DIASTOLIC BLOOD PRESSURE IS OVER 110 mmHg, or if YOUR SYSTOLIC BLOOD PRESSURE STAYS BELOW 100 mmHg, PLEASE RETURN TO THE
EMERGENCY ROOM RIGHT AWAY.
IF YOU HAVE ANY HEADACHE, NUMBNESS, TINGLING, NEW WEAKNESS, BLURRY VISION, CHEST PAIN, SHORTNESS OF BREATH, ABDOMINAL PAIN, OR ANY OTHER NEW SYMPTOMS, RETURN TO THE ER RIGHT AWAY THEY COULD BE A SIGN OF VERY HIGH BLOOD PRESSURE OR SOMETHING ELSE.
�Pravin Jones MD [facility] General Surgery
[facility]
[address], [address]
[place] [address]
[phone]
Post-Operative Instructions for Gallbladder Surgery
The incision sites are sealed with a surgical glue dressing.� It is safe to shower at any time after surgery when the glue is dry.� Let shower water run over the incisions and then pat dry.
Glue dressing typically peels off in 2-3 weeks.
Abdominal/incisional pain and discomfort, shoulder/scapular pain, bloating, and mild nausea, as well as bruising/stiffness and swelling at the incision sites are common after surgery.� If felt to be excessive, notify us.
Please start postoperative pain management using over the counter medications such as Tylenol and Ibuprofen, per instructions on the bottle, as long as there are no medical reasons why you cannot take these medications.
Ice the incisions sites for 20 minutes every hour or so to help with postoperative incisional pain and reduce postoperative surgical site swelling.� Take care NOT to get an ice burn on the skin surface.
A warm heating pad is often helpful to alleviate shoulder/scapular back pains after laparoscopic procedures.� This pain typically dissipates 24-72hrs post op.
Transition to a low fat diet as tolerated after surgery if not experiencing postoperative nausea or significant bloating/distention.� Some fatty food intolerance may occur shortly after surgery (cramps,bloating, nausea,diarrhea with fat intake).
Constipation is common following surgery and postoperative narcotic use.� May use a stool softener such as Colace (100 mg 2x day) to prevent constipation
If no BM 24hrs after surgery, recommend starting daily Miralax
If no BM in 24-48hrs after starting Miralax --> recommend then using a dose of magnesium citrate or milk of magnesia with a Senokot tablet to help alleviate post operative constipation as long as there is no nausea/vomiting and passing gas.
Resume all preoperative medications as prescribed, unless directed otherwise.
Do not drive or drink alcohol for 24 hrs after having anesthesia or while taking narcotic pain medications.
Resume regular daily light activities, such as walking, standing and going up/down stairs as tolerated within 24hrs of surgery.� Please refrain from lifting over 20 lbs or strenuous exercise until postoperative follow up visit &/or approximately
2-3 weeks.�
Call the office with a fever above 101� F, nausea with vomiting, severe abdominal pain, yellowing of skin or eyes, spreading redness and drainage from incision sites or with any concerns/questions.
If not arranged prior to surgery, please call the office to schedule or confirm your 2 week� postoperative surgical follow-up office visit with Dr. Jones.
Instructions: Atrial fibrillation, Controlling your blood pressure through lifestyle, High blood pressure emergencies, Apixaban, How to take anticoagulants safely, Nifedipine, Checking your blood pressure at home, Dealing with Low Blood Pressure
from the Drugs You Take, DASH diet, Blood pressure measurement, Atrial fibrillation - Discharge instructions
Referrals:
Demond Betancourt MD [Family Provider, Family Practice] - in less than 1 week
Referral Note: Hospitalization Follow-Up.
Luis Kerns MD [Active, Cardiology] - in one to two weeks
Referral Note: Hospital Follow-Up. New-A-Fib. Hypertension.
Pravin Jones MD [Active, Surgical] - in two to four weeks
Jai Edwards MD [Active, Gastroenterology]
Referral Note: NEEDS MRI 6-8 weeks
My office is working on auth
If you do not hear from my office in a week please call
Additional Discharge Medication Instructions: Needs MRI/MRCP 6-8 weeks to re-evaluate pancreas.
Follow-up with your surgeon Dr. Jones in 2 weeks from now.
Apixaban 5 mg twice per day is a new blood thinner medication to prevent stroke given your atrial fibrillation -- you should start taking your first dose of Apixaban on the evening of Sunday, November 16, 2024 -- if your blood pressure is very high
(systolic blood pressure above 160 mmHg) on Saturday November 16, 2024, please return to the emergency room for proper treatment before taking this medication.
Nifedipine is a new blood pressure medication.
Oxycodone is an as needed medication for pain. You can do pain control with Tylenol, Oxycodone -- try to avoid ibuprofen as this can raise your blood pressure among other potential side effects (for example, bleeding especially since you will start
Apixaban).
Polyethylene Glycol and Sennosides-Docusate are new medications for constipation. If you have diarrhea, you can hold off on taking these medications and discuss with your primary care provider as soon as possible.
Atorvastatin is on hold because your AST and ALT on your labwork were high from your gallstone -- you need to have these labs rechecked outpatient with your primary care provider (and discuss with your primary care provider) before resuming this
medication (Atorvastatin).
Prescriptions:
New
polyethylene glycol 3350 17 gram Powder In Packet
17 g PO DAILY Qty: 30 1RF
oxycodone 5 mg Tablet
5 mg PO Q4HPRN PRN (Reason: severe pain) Qty: 7 0RF
sennosides-docusate sodium 8.6-50 mg Tablet
1 tab PO BIDPRN PRN (Reason: constipation) Qty: 14 0RF
nifedipine 30 mg tablet extended release
30 mg PO DAILY Qty: 30 1RF
apixaban 5 mg tablet
5 mg PO BID Qty: 60 2RF
Rx Instructions:
Start on the evening of November 16, 2024
Continued
labetalol 200 MG tablet
300 mg PO BID
valsartan 320 MG tablet
320 mg PO HS
levothyroxine 75 MCG capsule
75 mcg PO DAILY
therapeutic multivitamin Tablet
1 tab PO HS
vitamin B complex Tablet
1 tab PO HS
cholecalciferol (vitamin D3) 25 mcg (1,000 unit) Tablet
25 mcg PO HS
famotidine [Pepcid] 20 mg Tablet
20 mg PO DAILYPRN PRN (Reason: gerd)
Held
atorvastatin 10 MG tablet
10 mg PO HS
Hold Instructions: Resume on 11/21/24. Since your AST/ALT were high during your hospital stay, this is being held. Ask you primary care provider in the next 3 to 3 days when you can resume this medication.
Discontinued
ibuprofen 200 mg Tablet
600 mg PO DAILYPRN PRN (Reason: mild pain)
Discharge Orders:
Discharge Patient (As Directed); Ordered 11/14/24
Ordered By: Oniel Hernández
Discharge Date and Time
Discharge Date/Time: 11/14/24 20:40
Print Language: WALLISIAN
[2024-11-14] MEDS: LOVENOX SC (18:25)
== END 2024-11-14 20:40 | disposition home or self-care (01) | DRG 417 ==
LOC: 4 EAST ACU 17:00
PROVIDERS: Nurse Practitioner Adult Health; Surgery; ADMITTING PHYSICIAN Internal Medicine; ATTENDING PHYSICIAN Hospitalist; CONSULT PHYSICIAN Internal Medicine Cardiovascular Disease; CONSULT PHYSICIAN Internal Medicine Gastroenterology; EMERGENCY PHYSICIAN Emergency Medicine; FAMILY PHYSICIAN Family Medicine; OTHER PHYSICIAN Surgery
PROC: 0FT44ZZ Resection of Gallbladder, Percutaneous Endoscopic Approach (ICD-10-PCS; 2024-11-13)
PROC: BF502Z0 Other Imaging of Bile Ducts using Fluorescing Agent, Intraoperative (ICD-10-PCS; 2024-11-13)
DX: K80.65 Calculus of gallbladder and bile duct with chronic cholecystitis with obstruction (principal); K85.10 Biliary acute pancreatitis without necrosis or infection; K85.80 Other acute pancreatitis without necrosis or infection; E78.00 Pure hypercholesterolemia, unspecified; E03.9 Hypothyroidism, unspecified; Z87.891 Personal history of nicotine dependence; Z90.49 Acquired absence of other specified parts of digestive tract; I10 Essential (primary) hypertension; I16.0 Hypertensive urgency; N28.1 Cyst of kidney, acquired; I48.0 Paroxysmal atrial fibrillation; K21.9 Gastro-esophageal reflux disease without esophagitis
CPT/HCPCS: 88304; 74183; 74300; 76000; 76700; 80048; 80053; 82248; 83690; 83735; 84484; 85025; 85027; 85610; 86850; 86900; 86901; 93005; 96374; 96375; 96376; 99285; A4300; A9575

== ENCOUNTER → 2024-12-02 14:34 | Outpatient (REF) | payer OTHER, SELFPAY | LOC: RAD 14:34 | PROVIDERS: ATTENDING PHYSICIAN Surgery Vascular Surgery; FAMILY PHYSICIAN Family Medicine | DX: I73.9 Peripheral vascular disease, unspecified (principal) | CPT/HCPCS: 93922; 93925 ==

== ENCOUNTER → 2025-02-20 12:06 | Outpatient (REF) | payer OTHER, SELFPAY | LOC: MRI 3T 12:06 | PROVIDERS: ATTENDING PHYSICIAN Internal Medicine Gastroenterology; FAMILY PHYSICIAN Family Medicine | DX: R93.89 Abnormal findings on diagnostic imaging of other specified body structures (principal) | CPT/HCPCS: 74183; A9575 ==